=== PATIENT | female | born 1970 | race Caucasian/White ===

== ENCOUNTER → 2020-06-25 16:06 | Outpatient (CLI) | payer OTHER, SELFPAY ==
--- NOTE | ~2020-06-25 | MM_ITS ---
EXAMINATION: MM screening [facility] BI w evaristo HISTORY: Screening mammogram TECHNIQUE: Craniocaudal and mediolateral oblique 3-D tomosynthesis images were obtained and synthetic 2-D images were generated. CAD analysis was submitted and interpreted. COMPARISON: 01/03/2019, 11/20/2017, 11/17/2016 BREAST PARENCHYMAL COMPOSITION: The breasts are heterogeneously dense, which may obscure small masses . FINDINGS: There is no evidence of suspicious mass, calcification, or architectural distortion to sugg est malignancy in either breast. There has been no suspicious interval change. IMPRESSION: 1. No mammographic evidence of malignancy. 2. Recommend routine screening mammography in one year. BI-RADS Category 1: Negative Reviewed, dictated and finalized at location A. IT CHECKER
== END ==
PROVIDERS: Visit Provider Obstetrics & Gynecology
DX: Z12.31 Encounter for screening mammogram for malignant neoplasm of breast (principal)
CPT/HCPCS: 77063; 77067

== ENCOUNTER → 2021-08-30 11:20 | Outpatient (CLI) | payer OTHER, SELFPAY ==
--- NOTE | ~2021-08-30 | MM_ITS ---
EXAMINATION: MM screening [facility] BI w evaristo HISTORY: Screening TECHNIQUE: Craniocaudal and mediolateral oblique 3-D tomosynthesis images were obtained and synthetic 2-D images were generated. CAD analysis was submitted and interpreted. COMPARISON: Comparison to multiple prior studies sequentially, with oldest reviewed study dated 11/12. BREAST PARENCHYMAL COMPOSITION: There are scattered areas of fibroglandular density. FINDINGS: There is no evidence of suspicious mass, calcification, or architectural distortion to sugg est malignancy in either breast. There has been no suspicious interval change. IMPRESSION: 1. No mammographic evidence of malignancy. 2. Recommend routine screening mammography in one year. BI-RADS Category 1: Negative Reviewed, dictated and finalized at location A. NURSE
== END ==
PROVIDERS: Visit Provider Obstetrics & Gynecology
DX: Z12.31 Encounter for screening mammogram for malignant neoplasm of breast (principal)
CPT/HCPCS: 77063; 77067

== ENCOUNTER 2021-09-13 01:49 | Day surgery (SDC) | payer OTHER, SELFPAY ==
[2021-09-09 14:47] VITALS: BMI 22.2
--- NOTE | 2021-09-09 14:48 | SUR.PREOP ---
Report to the Outpatient Waiting Room, entrance under the green pavilion located off [facility], at time _0830 on date _09/13/21 . OR Time: _1030 . - You and your visitor will be asked a series of questions to screen for COVID 19 for your protection. - A mask is required within the hospital. - Only one visitor is allowed at this time. Patient visitors will be guided where to wait when not with patient. Preoperative COVID Testing Requirements: No COVID Test needed if: (proof is required; if not received patient will have Rapid Test prior to entry) - Patient has received COVID Vaccine at least 14 days prior to procedure date or - Patient has positive COVID test result within last 90 days of surgery date. COVID Test needed if above criteria is not met If not COVID vaccinated a COVID test must be conducted within 72 hours of surgery and patient is asked to isolate self from time of testing until procedure. You will go to the [facility] for your COVID testing. The [facility] site is located at the corner of [address] [facility]. You will only be called if COVID results are positive and your surgeon may reschedule your elective surgery date. Patients may have clear liquids (water, carbonated beverages, clear teas, apple juice) until 3 hours prior to surgery with a maximum of 20 ounces. - No food from midnight until time of surgery - Infants may have breast milk until 4 hours before surgery, formula 6 hours prior to surgery. - Children will be allowed to drink immediately following surgery. If applicable, please bring a bottle or sippy cup to assist with drinking. Juice, water, soda, and popsicles are readily available. For infants on formula, please bring formula the day of surgery. Pacifiers are allowed. Take the following medications with a SIP of water the morning of surgery: n/a Medications to discontinue per physician vitamin Date to take last dose___09/10/21 Please no make-up, nail montenegrin, hairspray, perfume, deodorant, or body powder the day of surgery. No jewelry (including any body piercings) or valuables the day of surgery, leave them at home. Please take a shower or bath the night before, or the morning of, surgery with an antibacterial soap. Wear comfortable, loose fitting clothing. Children are encouraged to wear pajamas. - Jewelry must be removed prior to entering the operating room. Rings and piercings that are not removed may be cut off. - The hospital will not accept responsibility for valuables. - Please leave all valuables, including medications, at home the day of surgery. If you are going home after surgery, a licensed hydraulic lift driver must drive you home. - NO public transportation without another adult. - We recommend that an adult stay with you for 24 hours following discharge. - We also recommend that you do not drive, make important decision, drink alcoholic beverages, or take any drugs that were not prescribed by your health care provider for at least 24 hours after your discharge time. For Pediatric surgeries, we recommend two adults accompany the child home (only one inside the building at this time). Follow any additional instructions given to you from your surgeon. Telephone instructions given to marialuisa rgaham and asked if any additional questions and then verbalized understanding. Patient advised to call surgeon office or pre surgery nurse liaison [phone] if any additional questions.
--- NOTE | 2021-09-12 12:01 | P.PNAN_ITS ---
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 Patient Data Age: 51 Gender: F Height: 1.73 m Weight: 66.36 kg Allergies Allergy/AdvReac Type Severity Reaction Status Date / Time codeine Allergy Intermediate Hives,vomit Verified 09/13/21 09:10 ting Home Medications Medication Instructions Recorded Confirmed Type wrwwchaz-qwfp-eva-folic acid [One 1 tablet PO DAILY 09/09/21 09/13/21 History Daily For Women] norethindrone-e.estradiol-iron 1 tablet PO DAILY 09/09/21 09/13/21 History [09/05 ()] Patient hx anesthesia problems: none Family hx anesthesia problems: none Results Review: All pre-operative results and documents have been reviewed as part of the pre-operative evaluation. [facility] Social History Social History Smoking status: Never smoker Alcohol intake: current Alcohol use details: 1 drink a month Living arrangements: with family Spiritual care concerns: No Anes - Eval Final PreProcedure Day of Procedure 09/12/21 12:01 Patient weight: normal Heart: regular rate and rhythm Lungs: clear to auscultation and normal air movement Airway: Mallampati scale class II Neurological: alert and oriented Last oral intake: >/= 8 hours ASA classification: I Emergent: no Anesthetic plan: proceed Anesthesia type and monitoring: general GIVS and LMA Results Review: All pre-operative results and documents have been reviewed as part of the pre-operative evaluation. Informed Consent: The patient's anesthetic plan and its attendant risks and benefits were discussed with the patient/family/POA. Questions were solicited and answers provided to the satisfaction of the patient/family/POA.
--- NOTE | 2021-09-13 07:07 | WPDHPUPDATE1 ---
History and Physical Update Update Date/Time: 09/13/21 07:07 History and Physical has been reviewed, including an updated exam of the patient. There are NO changes in the patient's condition. Risks, benefits, and alternatives have been discussed and questions answered. Patient agrees to proceed with procedure.
[2021-09-13] MEDS: LACTATED RINGERS 1,000 ML 30 ML IV CONT (09:23)
[2021-09-13 09:26] VITALS: BP 138/84; PULSE 62; RESP 18; TEMP 36.7; O2SAT 100; BMI 22.4
--- NOTE | 2021-09-13 09:50 | SUR.PREOP ---
BEDSIDE U-PREG TEST NEGATIVE
--- NOTE | 2021-09-13 10:04 | SUR.PREOP ---
1005 PT AMBULATED TO/FROM BATHROOM WITH STANDBY ASSIST X1
--- NOTE | 2021-09-13 10:27 | SUR.PREOP ---
[address] MCELROY IS FINISHING UP WITH CASE PRIOR TO HERS AND THAT IT WILL BE CLOSER TO 1100 FOR HER SURGERY - UNDERSTANDING VOICED AND PT STATES SHE WILL CONTACT SPOUSE AND INFORM HIM OF DELAY.
--- NOTE | 2021-09-13 10:39 | SUR.PREOP ---
PT REPORT GIVEN TO LINDA FERNANDES R.N.
[2021-09-13] MEDS: ceFAZolin 2 GM/D5W 50 ML 2 GM/50 ML BAG IVPB (11:02)
[2021-09-13] MEDS: BUPIVACAINE HCL 0.5% PF 30 ML VIAL 20 ML INFILTRATE (11:26)
[2021-09-13] MEDS: LIDOCAINE HCL 2% PF INJ 5 ML VIAL 20 ML INFILTRATE (11:28)
[2021-09-13 11:44] VITALS: BP 141/88; PULSE 68; RESP 16; TEMP 36.1; O2SAT 100
[2021-09-13 12:10] VITALS: BP 143/96; PULSE 56; RESP 16; O2SAT 100
--- NOTE | 2021-09-13 12:15 | P.OP_ITS ---
Procedure Note - Detailed Date of Procedure 09/13/21 Pre-op Diagnosis Cedeno's neuroma left foot Post-op Diagnosis same Procedure Performed Excision of Mortons Neuroma left foot Surgeon Quincy Mcfarland JR, DPM Anesthesia general and local Indications Pain and paresthesias between the 3rd and 4th digits Findings Thickened amorphous proper digital nerve to the third and fourth digits Description of Procedure Under mild sedation, the patient was brought in to the operating room, placed on the operating table in the supine position. A pneumatic ankle tourniquet was placed about the patient's left ankle. Following general anesthesia, local anesthesia was obtained about the left lower extremity utilizing 20 mL of 0.5% Marcaine plain and 2% Lidocaine plain to with an ankle ring block. The foot was then scrubbed, prepped, and draped in the usual aseptic manner. An Esmarch bandage was then used to exsanguinate the patient's foot and the pneumatic ankle tourniquet was then inflated. An incision was made along the dorsal 3rd inter metatarsal space. All bleeders were cauterized as necessary. The Deep transverse intermetatarsal ligament was severed. Next Dissection was continued deep to the proper digital plantar nerve which was hypertrophied and amorphous. It was dissected proximal to the central metatarsal shaft area and transected next the distal branches were dissected and transected to the affected third and fourth digits. The neural tissue was sent for gross and histo. The Deep subcutaneous tissue was reapproximated with 4.0 Vicryl and the skin was reapproximated with 4.0 Monocryl. Upon completion of the procedure, the dorsal incision was dressed with Steri- Strips, Adaptic, 4x4s, Kerlix, and Coban. The pneumatic ankle tourniquet was then deflated and a prompt hyperemic response was noted to all digits of the left foot. A CAM walker boot was then applied. The patient did very well with the procedure and the anesthesia. She was transferred to the recovery room with vital signs stable and vascular status intact to all toes of the affected foot. Following a period of postoperative monitoring, the patient will be discharged home on the following written and oral postoperative instructions: 1. The patient should keep the dressing clean, dry, and intact. Use a cast protector bag with showers. 2. The patient will be strictly protected weight bearing with an orthopedic pn eumatic boot. 3. Patient should ice and elevate the right foot when at rest. 4. The patient is to contact Dr. Mcfarland for all postop care and if any problems arise. 5. Prescriptions were written for Percocet 5/325 dispensed 40 to be taken 1 p.o. q.4-6 hours as needed for severe pain. Estimated Blood Loss 1 Drains No Packing No Complications No immediate complications Condition stable Disposition same day
[2021-09-13 12:40] VITALS: BP 142/80; PULSE 64; RESP 16
== END 2021-09-13 13:15 | disposition home or self-care (01) ==
PROVIDERS: PCP Family Medicine; Visit Provider Podiatrist Foot & Ankle Surgery
PROC: (CPT 28080; principal; 2021-09-13 10:30)
DX: G57.62 Lesion of plantar nerve, left lower limb (principal)
CPT/HCPCS: 28080; 88304; 88305; J0690; J1100; J1885; J2250; J2405; J2704; J3010; J7120

== ENCOUNTER → 2021-10-03 11:35 | Outpatient (REF) | payer OTHER, SELFPAY | LOC: ANHLAB 11:35 | PROVIDERS: PCP Family Medicine; Visit Provider Nurse Practitioner | DX: D22.0 Melanocytic nevi of lip (principal) | CPT/HCPCS: 88305 ==

== ENCOUNTER → 2022-01-31 14:32 | Outpatient (CLI) | payer OTHER, SELFPAY ==
--- NOTE | ~2022-01-31 | XR_ITS ---
EXAM: XR hip BI wo pelvis DATE: 01/31/2022 14:49 HISTORY: M25.559 - Pain in unspecified hip . COMPARISON: None available. FINDINGS: Normal mineralization. No fracture or dislocation. No lytic or blastic lesion. Scattered d egenerative changes, moderate in the lower lumbar spine and mild in the right SI joint, pubic symphys is, and bilateral hips. Right iliac wing enthesopathy. No erosion or periosteal change. Soft tissues within normal limits. IMPRESSION: Mild bilateral hip osteoarthritis. Reviewed, dictated and finalized at location K.
== END ==
PROVIDERS: PCP Family Medicine; Visit Provider Family Medicine
DX: M16.0 Bilateral primary osteoarthritis of hip (principal)
CPT/HCPCS: 73521

== ENCOUNTER 2022-04-18 00:52 | Day surgery (SDC) | payer OTHER, SELFPAY ==
[2022-04-08 13:54] VITALS: BMI 21.1
[2022-04-18 08:30] VITALS: BP 136/80; PULSE 75; RESP 18; TEMP 36.7; O2SAT 100; BMI 20.9
[2022-04-18] MEDS: LACTATED RINGERS 1,000 ML 150 ML IV CONT (08:39)
--- NOTE | 2022-04-18 08:45 | PM.HPGS ---
History of Present Illness History of Present Illness Consent: Risks, benefits, and alternatives have been discussed and questions answered. Patient agrees to proceed with procedure. Chief complaint: neoplasm screening Narrative: Keyona Llanos is a 51 year old female here for first screening colonoscopy Review of Systems Constitutional: Constitutional: Denies headache(s) and Denies weakness Eyes: Eyes: Denies blurry vision ENT: Reports Normal hearing present, Denies headache(s) and Denies neck pain Cardiovascular: Cardiovascular: Denies chest pain and Denies dyspnea Respiratory: Respiratory: Denies dyspnea Gastrointestinal: Gastrointestinal: Reports no additional gastrointestinal complaints Genitourinary: Genitourinary: Denies dysuria Musculoskeletal: Musculoskeletal: Denies neck pain Integumentary/Breasts: Skin/Breast: Denies dry skin Neurologic: Reports Normal hearing present, Denies headache(s) and Denies weakness Psychiatric: Psychiatric: Denies anxiety Endocrine: Endocrine: Denies change in body appearance Hematologic/Lymphatic: Hematologic/Lymphatic: Denies easy bleeding Allergic/Immunologic: Allergic/Immunologic: Denies urticaria PMFSH Past Medical History Medical History Centromere antibody positive Enthesopathy of hip Insomnia Positive MIRI (antinuclear antibody) Screen for colon cancer Toe pain, bilateral Family History Family History Grandparent Family history of osteoporosis Mother Family history of osteoporosis Patient's mother is in good health Breast cancer Father Patient's father is in good health Sibling Patient's sister is in good health Other Asthma Social History Social History Smoking status: Never smoker Alcohol intake: current Alcohol use details: 1 drink a month Substance use type: does not use Living arrangements: with family Spiritual care concerns: No Meds Home Medications and Allergies Home Medications Medication Instructions Recorded Confirmed Type dlyexapz-mlvn-cwe-folic acid 18 1 tablet PO DAILY 09/09/21 04/08/22 History mg-0.4 mg tablet (One Daily For Women) norethindrone 1 mg-ethinyl 1 tablet PO DAILY 09/09/21 04/08/22 History estradiol 20 mcg (21)-iron 75 mg (7) tablet (Junel FE 1/20 (28)) meloxicam 15 mg tablet 15 mg PO DAILY #30 tabs 01/27/22 04/08/22 Rx Allergies Allergy/AdvReac Type Severity Reaction Status Date / Time codeine Allergy Unknown Nausea Verified 04/18/22 08:29 Vital Signs Vital Signs - 24 hr 04/18/22 08:30 Temperature 98.1 F Pulse Rate 75 Respiratory Rate 18 Blood Pressure 136/80 Pulse Oximetry 100 Oxygen Delivery Room Air Exam Const: General: comfortable and no acute distress HENMT: General nose exam: Normal nares present Eyes: General: appearance normal, both eyes and all related structures Neck: Neck: no JVD Resp: Auscultation: clear to auscultation bilaterally Cardio: Rate: regular rate Rhythm: regular rhythm GI: Inspection: non-distended GI Palp: Yes Soft to palpation Skin: General skin exam: normal color Neuro: General: gait normal Speech: normal speech Extrem: General: normal to inspection Psych: Mental Status: mental status grossly normal Assessment and Plan Assessment and plan (1) Screen for colon cancer: Code(s): Z12.11 - Encounter for screening for malignant neoplasm of colon Status: Acute Assessment and Plan: colonoscopy
--- NOTE | 2022-04-18 08:48 | P.PNAN_ITS ---
Anes - Initial Pre Proc Eval Procedure: Operation Date: 04/18/22 09:30 Proposed Procedures p Screening Colonoscopy - Prem Powers MD Date/Time: 04/18/22 08:48 Surgeon: Prem Powers MD Pre Op Diagnosis: neoplasm screening Patient Data Age: 51 Gender: F Height: 1.73 m Weight: 62.5 kg Last Vital Signs Temp 98.1 F 04/18/22 08:30 Pulse 75 04/18/22 08:30 Resp 18 04/18/22 08:30 BP 136/80 04/18/22 08:30 Pulse Ox 100 04/18/22 08:30 O2 Del Method Room Air 04/18/22 08:30 Allergies Allergy/AdvReac Type Severity Reaction Status Date / Time codeine Allergy Unknown Nausea Verified 04/18/22 08:29 Home Medications Medication Instructions Recorded Confirmed Type wgfacwvl-ohcw-abq-folic acid 18 1 tablet PO DAILY 09/09/21 04/08/22 History mg-0.4 mg tablet (One Daily For Women) norethindrone 1 mg-ethinyl 1 tablet PO DAILY 09/09/21 04/08/22 History estradiol 20 mcg (21)-iron 75 mg (7) tablet (Junel FE 09/05 (28)) meloxicam 15 mg tablet 15 mg PO DAILY #30 tabs 01/27/22 04/08/22 Rx Patient hx anesthesia problems: none Family hx anesthesia problems: none Results Review: All pre-operative results and documents have been reviewed as part of the pre- operative evaluation. [facility] Past Medical History Medical History Centromere antibody positive Enthesopathy of hip Insomnia Positive MIRI (antinuclear antibody) Screen for colon cancer Toe pain, bilateral Family History Family History Grandparent Family history of osteoporosis Mother Family history of osteoporosis Patient's mother is in good health Breast cancer Father Patient's father is in good health Sibling Patient's sister is in good health Other Asthma Social History Social History Smoking status: Never smoker Alcohol intake: current Alcohol use details: 1 drink a month Substance use type: does not use Living arrangements: with family Spiritual care concerns: No Anes - Eval Final PreProcedure Day of Procedure 04/18/22 08:48 Patient weight: normal Heart: regular rate and rhythm Lungs: clear to auscultation Airway: Mallampati scale class II Neurological: alert and oriented Last oral intake: >/= 8 hours ASA classification: II Emergent: no Anesthetic plan: proceed Anesthesia type and monitoring: general GIVS and standard monitoring Results Review: All pre-operative results and documents have been reviewed as part of the pre- operative evaluation. Informed Consent: The patient's anesthetic plan and its attendant risks and benefits were discussed with the patient/family/POA. Questions were solicited and answers provided to the satisfaction of the patient/family/POA.
[2022-04-18 09:12] VITALS: BP 112/75; PULSE 76; RESP 18; O2SAT 94
[2022-04-18 09:22] VITALS: BP 125/97; PULSE 70; RESP 22; O2SAT 96
[2022-04-18 09:32] VITALS: BP 136/97; PULSE 74; RESP 22; O2SAT 96
== END 2022-04-18 09:42 | disposition home or self-care (01) ==
PROVIDERS: PCP Family Medicine; Visit Provider Internal Medicine Gastroenterology
PROC: 0DJD8ZZ Inspection of Lower Intestinal Tract, Via Natural or Artificial Opening Endoscopic (ICD-10-PCS; CPT 45378; principal; 2022-04-18 09:30)
DX: Z12.11 Encounter for screening for malignant neoplasm of colon (principal); D12.2 Benign neoplasm of ascending colon; K64.8 Other hemorrhoids; G47.00 Insomnia, unspecified
CPT/HCPCS: 45385; 88305; J2704; J7120

== ENCOUNTER → 2022-05-01 08:35 | Outpatient (CLI) | payer OTHER, SELFPAY ==
--- NOTE | ~2022-05-01 | XR_ITS ---
EXAMINATION: XR hand BI arthritis min 3V DATE: 05/01/2022 09:31 INDICATION: Unspecified osteoarthritis, unspecified site. TECHNIQUE: 4 views of right hand and 4 views of left hand on a total of 7 radiographs were obtained. COMPARISON: None. FINDINGS: RIGHT HAND: Bone alignment is normal. No fracture. There is mild osteoarthritis of first carpometacar pal joint, first metacarpophalangeal joint, first interphalangeal joint, fifth proximal interphalange al joint, and third distal interphalangeal joint. LEFT HAND: Bone alignment is normal. No fracture. There is mild osteoarthritis of first interphalange al joint and fourth and fifth proximal interphalangeal joints. IMPRESSION: 1. Mild polyarticular osteoarthritis. Reviewed, dictated and finalized at location A.
--- NOTE | ~2022-05-01 | MR_ITS ---
EXAMINATION: 1. MR pelvis wo/w con DATE: 05/01/2022 09:20 INDICATION: Bilateral hip pain. Sacroiliitis. TECHNIQUE: 1. Magnetic resonance imaging (MRI) of the pelvis was performed without and with 12 mL Multihance int ravenous contrast. Sequences included axial, sagittal and coronal T1-weighted FSE and T1-weighted FS FSE, and postcontrast axial, sagittal and coronal T1-weighted FS FSE. COMPARISON: None FINDINGS: Bone alignment is normal. No fracture, avascular necrosis or pathologic marrow replacing process. 6 m m retrolisthesis L5 on S1 with severe associated disc height loss. There is also an associated annula r fissure and disc extrusion contributing to mild central canal stenosis at this level. Moderate to s evere left-sided predominant disc height loss at L4-L5 also with annular fissure and disc bulge. Mode rate lower lumbar facet osteoarthritis. Bilateral hip joint spaces appear normal. Bilateral acetabula r bette are unremarkable although assessment is more limited on the larger field of imaging. Physiolo gic amount fluid in the bilateral hip joints. Mild osteoarthritis of the left sacroiliac joint. Right sacral iliac joint space appears relatively preserved. No enhancing synovitis, erosions or degenerat christina subarticular changes at the bilateral sacroiliac joints to suggest an inflammatory sacroiliitis. Mild right gluteus medius and trochanteric bursitis with increased fluid signal and enhancement on th e deep and superficial margins of the distal right gluteus medius tendon which demonstrates mild tend inopathy without discrete tear. The remaining bilateral gluteal tendons along with the bilateral ilio psoas and proximal hamstring tendons are normal. No asymmetric muscle atrophy or abnormal muscle sign al of the musculature of the pelvis and bilateral proximal thighs. Fibroid uterus with multiple hypoe nhancing fibroids, the largest measuring 5 cm at the inferior fundus exerts mass effect upon the norm al endometrial complex. The decompressed bladder and visualized portions of the bowels are unremarkab le. Minimal likely physiologic free fluid in the pelvis. No pathologically enlarged pelvic or inguina l lymphadenopathy. IMPRESSION: 1. Mild left sacroiliac osteoarthritis without erosions or enhancing synovitis to suggest an inflamma tory sacroiliitis. 2. Mild right gluteus medius and trochanteric bursitis with mild gliosis medius tendinopathy without tear. 3. Fibroid uterus. 4. Severe lower lumbar spondylosis. Reviewed, dictated and finalized at location A. IMPRESSION: 1. Mild left sacroiliac osteoarthritis without erosions or enhancing synovitis to suggest an inflammatory sacroiliitis. 2. Mild right gluteus medius and trochanteric bursitis with mild gliosis medius tendinopathy without tear. 3. Fibroid uterus. 4. Severe lower lumbar spondylosis.
== END ==
PROVIDERS: PCP Family Medicine; Visit Provider Internal Medicine
DX: R76.8 Other specified abnormal immunological findings in serum (principal); M19.041 Primary osteoarthritis, right hand; M19.042 Primary osteoarthritis, left hand; D25.9 Leiomyoma of uterus, unspecified; M47.896 Other spondylosis, lumbar region; M16.12 Unilateral primary osteoarthritis, left hip; M70.61 Trochanteric bursitis, right hip
CPT/HCPCS: 72197; 73130; A9577

== ENCOUNTER 2022-07-07 08:00 | Outpatient (RCR) | payer OTHER, SELFPAY ==
--- NOTE | 2022-06-02 13:22 | PTOPEVAL1 ---
Assessment and note entered by Gianna Nagel, PT Evaluation Information Assessment Status Evaluation Diagnosis R hip pain Onset October 2021 Subjective Information increase in R hip pain after L foot surgery, wearing walking boot, walking funny and more pain in R hip; Dr gave her permission to resume running on her treadmill, but more pain and not able to run, previously ran 3 miles; Reported Pain Level Pain Score Self Report Additional Pain Score Comments range of 0-6/10; dull pain over anterior/lateral hip; increase pain with walking 2 miles; decrease with stretching, moving, advil, tylenol; with sleeping, can lie on R hip 5-10 min, does not sleep well in general, hip pain does not wake her up; Assessment PT Clinical Summary Keyona has the diagnosis of R hip pain. She reports decreased ability with walking and running. Onset of pain after wearing a walking boot post L foot surgery. Her pelvic MRI report has changes over lumbar and sacral spine with R trochanteric bursitis. With the evaluation, she has good flexibility and strength of her trunk and hips; There was pain reported with standing trunk extension and with supine trunk rotation to L had R hip discomfort. She has poor sitting and standing position. Skilled PT services are indicated for modalities to decrease pain, education for pain management and therapeutic exercises to improve trunk position. Plan of Care Interventions Electrical Stimulation,Hot Pack/Cold Pack,Manual Therapy,Mechanical Traction,Therapeutic Activities ,Therapeutic Exercise PT Services Indicated Yes Treatment Frequency and 1x/wk for 5 weeks Duration These treatments will address the objective and functional deficits as defined above. The patient will be advanced safely and appropriately in order for the patient to progress towards his/her prior level of function. Additional exercises will be introduced and as well as a comprehensive home exercise program upon discharge, if needed, ?to ensure carryover of functional gains achieved in the clinic. This treatment plan has been reviewed and agreement upon by the patient.
--- NOTE | 2022-06-23 17:40 | PCPTNOTE ---
Patient called & cancelled scheduled appointment this date due to being [place] traffic on [address].
--- NOTE | 2022-07-07 08:41 | PTOPDC ---
Assessment and note entered by Gianna Nagel, PT Evaluation Information Assessment Status Discharge Diagnosis R hip pain Onset October 2021 Subjective Information Keyona reports: she is slightly better; has not gotten back to running on the treadmill, but walking on the treadmill at a good pace, not fast and not running; she feels she does not have to get back to running, only did for fitness; trying not to cross her legs, otherwise posture is not that awareness; is doing everything at home and work; is sleeping OK at night; the electrical stim helped her pain; Reported Pain Level Pain Score Self Report Additional Pain Score Comments pain range 0-6/10; R lateral and ant hip stiffness ; no pain over low back or SIJ; increase pain with more activity--getting on/off floor with cleaning her basement, can lie on R side about 10 minutes; walking reported 2-3 miles, can feel it and want to stop walking at about 3 miles; have good computer work station; discussed home stim unit for pain control and placement of pads, use of unit; Assessment PT Clinical Summary Keyona received 5 PT sessions, for R hip pain. She called and canceled one appointment due to stuck in traffic. Compared to the initial evaluation: her pain rating is the same, but reports pain only in R lateral hip, no longer in back and less time at the high rating, and able to do more activity before the pain starts; reported walking tolerance increased from 2 to 3 miles; standing trunk extension is not painful; no longer has any tenderness over sacral or lumbar areas; She is independent with a home exercise program and has a better understanding of posture and pain management. The goals were partially achieved. Discharge PT services. Plan of Care PT Services Indicated No
== END 2022-07-07 12:31 | disposition home or self-care (01) ==
LOC: ANHPT 08:00
PROVIDERS: PCP Family Medicine; Visit Provider Internal Medicine
DX: M76.899 Other specified enthesopathies of unspecified lower limb, excluding foot (principal)
CPT/HCPCS: 97014; 97110; 97140; 97161; 97530; G0283

== ENCOUNTER 2023-02-02 11:17 | Outpatient (CLI) | payer OTHER, SELFPAY ==
[2023-02-02 11:57] LABS: Hematocrit 39.6 % (37.0-47.0); Hemoglobin 12.9 g/dL (12.0-15.0); Mean Corpuscular HGB Conc 32.6 g/dl (32-36); Mean Corpuscular Hemoglobin 31.2 pg (26-34); Mean Corpuscular Volume 95.9 fl (80-100); Mean Platelet Volume 9.2 fl (7.4-10.4); Platelet Count Result 208 k/mm3 (150-375); Red Blood Count 4.13 M/mm3 (4.2-5.4); Red Cell Distribution Width 11.4 % (11.5-14.5); White Blood Count 3.8 K/mm3 (4.5-10.0)
[2023-02-02 12:04] LABS: Appearance Urine Cloudy (Clear); Bacteria Urine None Seen /hpf; Bilirubin Urine Negative (Negative); Blood Urine Negative (Negative); Color Urine Yellow (Yellow); Glucose Urine UA Negative (Negative); Ketones Urine Negative (Negative); Leukocyte Esterase Ur 2+ LEU/UL (Negative); Nitrate Urine Negative (Negative); Non Pathogenic Casts 0-2; Protein Urine Trace mg/dL (Negative); RBC Urine 0-2 /hpf (0-2); Specific Grav Ur 1.028 (1.001-1.035); Squamous Epithelial Cell Urine Occasional /hpf (Few); Urobilinogen Urine 0.2 mg/dL (<2.0); WBC Urine 51-100 /hpf
[2023-02-02 12:07] LABS: Add Urine Microscopic? YES
[2023-02-02 12:11] LABS: Alanine Aminotransferase 22 U/L (6-35); Alkaline Phosphatase 68 U/L (38-126); Anion Gap 4 mmol/L (8-16); Aspartate Amino Transferase 28 U/L (14-36); Bilirubin,Total 0.4 mg/dL (0.2-1.3); Blood Urea Nitrogen 19 mg/dL (7-17); CRP < 0.5 mg/dL (<1.0); Calcium 8.8 mg/dL (8.4-10.2); Carbon Dioxide 29 mmol/L (22-30); Chloride 107 mmol/L (98-107); Estimated Glomerular Filt Rate > 60; Glucose 81 mg/dL (65-110); Potassium 4.3 mmol/L (3.4-5.0); Sodium 140 mmol/L (137-145)
[2023-02-02 12:25] LABS: Erythrocyte Sedimentation Rate 15 mm/hr (0-20)
== END 2023-02-02 11:18 | disposition home or self-care (01) ==
LOC: ANHLAB 11:18
PROVIDERS: PCP Family Medicine; Visit Provider Internal Medicine
DX: M35.9 Systemic involvement of connective tissue, unspecified (principal); M19.90 Unspecified osteoarthritis, unspecified site
CPT/HCPCS: 36415; 80053; 81001; 85027; 85652; 86140; 87086

== ENCOUNTER 2023-10-22 15:17 | Outpatient (CLI) | payer OTHER, SELFPAY ==
--- NOTE | ~2023-10-22 | CT_ITS ---
EXAMINATION: CT IAC/mastoids BI wo con DATE: 10/22/2023 15:41 INDICATION: Sensorineural hearing loss. Other specified diseases of right inner ear. TECHNIQUE: Computed tomography (CT) of the temporal bones was performed without intravenous contrast. Automated exposure control and iterative reconstruction technique were employed. The dose-length pro duct was 384.92 mGy-cm. COMPARISON: None FINDINGS: RIGHT TEMPORAL BONE: The internal auditory canal, cochlea, vestibule, semicircular canals, vestibular aqueduct, carotid ca nal, jugular bulb, ossicles, facial nerve course, tympanic membrane, scutum, Prussak space, and exter nal auditory canal are normal. There is fluid in a few mastoid air cells. LEFT TEMPORAL BONE: The internal auditory canal, cochlea, vestibule, semicircular canals, vestibular aqueduct, carotid ca nal, jugular bulb, facial nerve course, ossicles, Prussak space, scutum, tympanic membrane, mastoid a ir cells, and external auditory canal are normal. IMPRESSION: 1. No etiology for sensorineural hearing loss. Reviewed, dictated and finalized at location E. SAW OPERATOR
== END 2023-10-22 15:18 ==
LOC: GOSHIMG 15:19
PROVIDERS: PCP Otolaryngology; Visit Provider Otolaryngology
DX: H83.8X1 Other specified diseases of right inner ear (principal); H90.3 Sensorineural hearing loss, bilateral
CPT/HCPCS: 70480

== ENCOUNTER 2024-02-12 19:34 | Emergency (ER) | payer OTHER, SELFPAY ==
--- NOTE | 2024-02-12 19:40 | ED.GENADULT ---
HPI - General Adult General Chief complaint: Skin/Abscess/Foreign Body Stated complaint: Hives Source: patient Mode of arrival: ambulatory Limitations: no limitations History of Present Illness HPI narrative: 53-year-old female presented for complaint of itchy rash noted to the face, neck, and arms or past few days. She states she has intermittently had similar rash for the last 2 months. [employer] is not working. She has taken a course of prednisone at the onset 2 months ago which did help. Denies lip, tongue, or throat swelling, shortness of breath or wheezing. Denies changes to soap, detergent, lotion, or any other exposures. No one else in the house or any contacts with similar symptoms. Scheduled with Dermatology in March. Related Data Allergies Allergy/AdvReac Type Severity Reaction Status Date / Time codeine Allergy Unknown Nausea Verified 02/12/24 19:46 Review of Systems Review of Systems: CONSTITUTIONAL: Denies body aches, fever, chills, or sweats. EYES: Denies visual changes, redness, or discharge. ENT: Denies rhinorrhea, congestion CARDIOVASCULAR: Denies chest pain, palpitations, or edema. RESPIRATORY: Denies cough or dyspnea. GASTROINTESTINAL: Denies abdominal pain, nausea, vomiting, or diarrhea. SKIN: Reports rash MUSCULOSKELETAL: Denies back pain, joint pain, or myalgia. NEUROLOGIC: Denies headache, numbness, tingling, or weakness. [facility] Past Medical History Medical History Centromere antibody positive Enthesopathy of hip Insomnia Positive MIRI (antinuclear antibody) Screen for colon cancer Toe pain, bilateral Undifferentiated connective tissue disease Surgical History Surgical History H/O foot surgery Family History Family History Grandparent Family history of osteoporosis Mother Family history of osteoporosis Patient's mother is in good health Breast cancer Father Patient's father is in good health Pacemaker Sibling Patient's sister is in good health Other Asthma Social History Social History Social History: Caffeine-occasional soda Smoking status: Never smoker Second hand tobacco smoke exposure: Yes Alcohol intake: current Alcohol use details: 1 drink a month Substance use: never Substance use type: does not use Lack of Transportation: YES Lack of Food: Never True Current Housing: I Have Housing Concerned About Future Housing: No Difficulty Paying Gas/Electric Bills: No Difficulty Paying for Meds: No Currently Unemployed: No Education: High School Diploma/GED Difficulty w/ Childcare or Family Care: No Living arrangements: with family Occupation/Education: occupation 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 Please see nursing chart for further information. There is no relevant family history pertinent to the presenting complaint Exam Narrative: GENERAL: Well-appearing HEAD: Normocephalic, atraumatic. EYES: conjunctivae clear, and EOMI. bilateral lower orbits with approximately 1 cm diameter area of erythema with vesicles consistent with contact dermatitis ENT: Mucous membranes moist. Oropharynx without edema, erythema or lesions. NECK: Supple. No lymphadenopathy CHEST: Clear to auscultation. HEART: Regular rate and rhythm. SKIN: Warm, dry. Scattered vesicles on erythematous base noted to the face, neck, and bilateral forearms consistent with contact dermatitis NEURO: Alert and oriented x3. Course Course Emergency Course: Patient is aware of diagnosis, u
[2024-02-12 19:45] VITALS: BP 151/91; PULSE 92; RESP 16; TEMP 36.9; O2SAT 100
== END 2024-02-12 19:57 | disposition home or self-care (01) ==
PROVIDERS: Emergency Provider Nurse Practitioner Family; PCP Family Medicine
DX: L25.9 Unspecified contact dermatitis, unspecified cause (principal)
CPT/HCPCS: 99213; G0463

== ENCOUNTER 2024-05-28 11:14 | Outpatient (CLI) | payer OTHER, SELFPAY ==
--- NOTE | ~2024-05-28 | XR_ITS ---
EXAM: XR cervical spine min 6V DATE: 05/28/2024 11:46 HISTORY: M54.2 - Cervicalgia . COMPARISON: None available. FINDINGS: Craniocervical association and atlantoaxial joint are aligned. Moderate degenerative colunga e at the atlantodental interval. No prevertebral soft tissue swelling. Grade 1 at C2-3 anterolisthesi s which emerges in flexion. Grade 1 anterolisthesis at C3-4 that reduces in flexion. Grade 1 anteroli sthesis at C4-5 that worsens in flexion and reduces in extension. Stable grade 1 retrolisthesis at C5 -6. Vertebral body heights are maintained. Mild disc space narrowing at C3-4. Moderate disc space deandre rowing at C4-5. Severe disc space narrowing at C5-6 and C6-7. Multilevel moderate facet/uncovertebral joint hypertrophy and sclerosis. Moderate bilateral neural foraminal narrowing at C5-6 and C6-7. IMPRESSION: Dynamic grade 1 listheses at C2-3 through C4-5. Stable grade 1 retrolisthesis at C5-6. Mu ltilevel degenerative disc disease, severe at C5-6 and C6-7. Moderate bilateral neural foraminal narr owing at C5-6 and C6-7. Multilevel facet arthropathy. Reviewed, dictated and finalized at location K. IMPRESSION: Dynamic grade 1 listheses at C2-3 through C4-5. Stable grade 1 retr olisthesis at C5-6. Multilevel degenerative disc disease, severe at C5-6 and C6 -7. Moderate bilateral neural foraminal narrowing at C5-6 and C6-7. Multilevel facet arthropathy.
== END 2024-05-28 11:15 | disposition home or self-care (01) ==
PROVIDERS: PCP Family Medicine; Visit Provider Nurse Practitioner Family
DX: M50.322 Other cervical disc degeneration at C5-C6 level (principal); M50.323 Other cervical disc degeneration at C6-C7 level; M47.812 Spondylosis without myelopathy or radiculopathy, cervical region
CPT/HCPCS: 72052

== ENCOUNTER 2024-10-07 06:13 | Day surgery (SDC) | payer OTHER, SELFPAY ==
[2024-09-22 09:29] VITALS: BMI 22.1
[2024-10-07] VITALS (10 sets, daily range): BP systolic 121–154; BP diastolic 82–94; PULSE 62–82; RESP 12–18; TEMP 36.1–37.2; O2SAT 100
--- NOTE | ~2024-10-07 | XR_ITS ---
EXAMINATION: XR surgery orthopedic DATE: 10/07/2024 10:43 INDICATION: Arthrodesis of right first metatarsophalangeal joint. TECHNIQUE: 2 intraoperative fluoroscopic views of right foot were obtained. I was not present. Fluoro scopy exposure time was 12 seconds. COMPARISON: None. FINDINGS: There are changes of arthrodesis of first metatarsophalangeal joint with dorsal plate, mult iple screws, and single interfragmentary screw. No fracture. IMPRESSION: 1. Arthrodesis procedure of first metatarsophalangeal joint. Reviewed, dictated and finalized at location A. [facility] [employer]
--- NOTE | 2024-10-07 07:20 | WPDHPUPDATE1 ---
History and Physical Update Update Date/Time: 10/07/24 07:20 History and Physical has been reviewed, including an updated exam of the patient. There are NO changes in the patient's condition. Risks, benefits, and alternatives have been discussed and questions answered. Patient agrees to proceed with procedure.
--- OUTSIDE RECORDS SUMMARY | 2024-10-07 07:57 | XMS_ITS | Data Portability ---
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, HS pedro cologuard box for her next year Not available 06/08/2020 14:23:16 06/14/2021 06/14/2021 manager culinary exam normal, small 2-day period on OCPs youngest is a senior in HS discussed cologuard vs colonoscopy Not available 06/14/2021 14:33:12 06/20/2022 06/20/2022 manager culinary exam benign should go off OCPs with new lupus diagnosis kids doing well youngest is a senior in HS Not available 06/20/2022 14:25:08 06/29/2023 06/29/2023 Final Operations Technician exam benign will check FSH/LH to see if is menopausal may need h-scope if continues Not available 06/29/2023 15:21:36 07/08/2024 07/08/2024 manager culinary exam benign after discussion of pros and cons will start some HRT for quality of life Not available 07/08/2024 10:34:29 Plan of Treatment Reminders Order Date Submit Date Provider Last Modified By Organization Details Last Modified Time Details Appointments ANNUAL 30 2024 09:00A Daya Quintana MD Not available Not available Not available Lab cytology report, thin prep, smear or scraping, cervical or vaginal 2023 024 [facility], [address], [place], [address], 07/18/2024 16:26:30 lh + FSH, serum 2022 023 [facility], [address], [place], [address], 06/30/2023 11:13:40 cytology report, thin prep, smear or scraping, cervical or vaginal 2020 021 [facility], [address], [place], [address], 06/18/2021 16:11:37 Referral None recorded. Procedures None recorded. Surgeries None recorded. Imaging MAMMO, screening , digital, bilateral 2023 [facility], [address] , [place], [address], 10/06/2024 12:47:37 MAMMO, screening , digital, bilateral 2022 [facility]23 [facility] [address], [place], [address], 12/28/2023 10:08:02 MAMMO, screening , digital, bilateral 2021 022 [facility], [address], [place], [address], 08/19/2022 10:29:50 MAMMO, screening , digital, bilateral 2020 021 [facility], [address], [place], [address], 08/30/2021 14:18:32 MAMMO, screening , digital, bilateral 2019 020 [email or web address] Not available 06/08/2020 14:18:46 Medication Orders estradiol 1 mg tablet 2023 024 [facility]/Pharmacy #[id number], [address] [place], [address], 07/08/2024 10:34:10 medroxypr ogesteron e 2.5 mg tablet 2023 024 [facility]/Pharmacy #[id number], [address] [place], [address], 07/08/2024 10:34:10 Junel FE 09/05 (28) 1 mg-20 mcg (21)/75 mg (7) tablet 2021 022 [facility]/Pharmacy #3259, [address] [place], [address], 06/29/2023 15:02:52 Junel FE 09/05 (28) 1 mg-20 mcg (21)/75 mg (7) tablet [address] [facility], [address] [place], [address], 06/29/2023 15:02:52 Patient TargetsNo targets recorded. Patient Instructions Encounter Date Encounter Id Patient Instructions Last Modified By Organization Details Last Modified Time 06/08/2020 [id number] learning about breast cancer screening er Not available 06/08/2020 14:12:20 06/14/2021 [id number] learning about breast cancer screening Not available 06/14/2021 14:24:55 06/20/2022 [id number] learning about breast cancer screening Not available 06/20/2022 14:12:16 06/29/2023 [id number] learning about breast cancer screening gter Not available 06/29/2023 15:09:57 secondary amenorrhea: care instructions Not available 06/29/2023 15:10:06 07/08/2024 [id number] learning about breast cancer screening Not available 07/08/2024 10:13:57 Reason for Referral None Reported. Results Created Date Observation Date Name Description Value Unit Range Abnormal Flag Note LastModifiedBy Organization Detail LastModifiedTime 06/14/20 21 06/18/2021 IGP, RFX APTIM A HPV ASCU diagnosis: Kelton t NEGAT GERTRUDIS FOR INTRA EPITH ELIAL LESIO N OR EMBER DEE . Not Available [facility] ([facility]) [address] [place], [address], 06/18/2021 16:11:37 06/14/20 21 06/18/2021 IGP, RFX APTIM A HPV ASCU specimen adequacy: Kelton t Satis facto ry for evalu ation . No endoc ervic al compo nent is ident ified . Not Available [facility] ([facility]) [address] [place], [address], 06/18/2021 16:11:37 06/14/20 21 06/18/2021 IGP, RFX APTIM A HPV ASCU clinician provided ICD10: Kelton carvajal Z01.4 19 Not Available [facility] ([facility]) [address] [place], [address], 06/18/2021 16:11:37 06/14/20 21 06/18/2021 IGP, RFX APTIM A HPV ASCU performed by: Kelli Lara Not Available [facility] ([facility]) [address] [place], [address], 06/18/2021 16:11:37 06/14/20 21 06/18/2021 IGP, RFX APTIM A HPV ASCU . . Not Available [facility] ([facility]) [address] [place], [address], 06/18/2021 16:11:37 06/14/20 21 06/18/2021 IGP, RFX APTIM A HPV ASCU note: Commen t The Pap smear is a scree celina test desig shelby to aid in the detec tion of patel ligna nt and malig nant condi tions of the uteri ne cervi x. It is not a diagn ostic proce dure and shoul d not be used as the sole means of detec ting cervi kamla cance r. Both false -posi tive and false -nega tive repor ts do occur . Not Available [facility] ([facility]) [address] [place], [address], 06/18/2021 16:11:37 06/14/20 21 06/18/2021 IGP, RFX APTIM A HPV ASCU test methodology: Commen t This liqui d based ThinP rep(R ) pap test was scree shelby with the use of an image guide d syste m. Not Available [facility] ([facility]) [address] [place], [address], 06/18/2021 16:11:37 06/14/20 21 06/18/2021 IGP, RFX APTIM A HPV ASCU . Commen t The HPV DNA refle x crite carli were not met with this speci men resul t there fore, no HPV testi ng was perfo rmed. Not Available [facility] ([facility]) [address] [place], [address], 06/18/2021 16:11:37 06/29/20 23 06/30/2023 FSH AND LH LH 32.7 mIU/m L Adult Femal e Range Folli cular phase 2.4 - 12.6 Ovula tion phase 14.0 - 95.6 Lutea l phase 1.0 - 11.4 Postm enopa usal 7.7 - 58.5 Not Available [facility] ([facility]) [address] [place], [address], 06/30/2023 11:13:40 06/29/20 23 06/30/2023 FSH AND LH FSH 29.0 mIU/m L Adult Femal e Range Folli cular phase 3.5 - 12.5 Ovula tion phase 4.7 - 21.5 Lutea l phase 1.7 - 7.7 Postm enopa usal 25.8 - 134.8 Not Available [facility] ([facility]) [address] [place], [address], 06/30/2023 11:13:40 07/08/20 24 07/18/2024 IGP, RFX APTIM A HPV ASCU diagnosis: KELTON LANDIN GERTRUDIS FOR INTRA EPITH ELIAL LESIO N OR MALNATA DEE . CELLU LAR RUBY ES ASSOC IATED WITH ATROP HY ARE PRESE NT. Not Available [facility] ([facility]) [address] [place], [address], 07/18/2024 16:26:30 07/08/20 24 07/18/2024 IGP, RFX APTIM A HPV ASCU specimen adequacy: KELTON Carvajal Satis facto ry for evalu ation . Endoc ervic al compo nent may not be disti nguis hed in cases of atrop hy. Not Available [facility] ([facility]) [address] [place], [address], 07/18/2024 16:26:30 07/08/20 24 07/18/2024 IGP, RFX APTIM A HPV ASCU clinician provided ICD10: KELTON Carvajal Z01.4 19 Not Available [facility] ([facility]) [address] [place], [address], 07/18/2024 16:26:30 07/08/20 24 07/18/2024 IGP, RFX APTIM A HPV ASCU performed by: Kelli Walker rd (ASCP ) Not Available [facility] ([facility]) [address] [place], [address], 07/18/2024 16:26:30 07/08/20 24 07/18/2024 IGP, RFX APTIM A HPV ASCU . . Not Available [facility] ([facility]) [address] [facility], [place], [address], 07/18/2024 16:26:30 07/08/20 24 07/18/2024 IGP, RFX APTIM A HPV ASCU note: COMMEN T The Pap smear is a scree celina test carmen ryan to aid in the detec tion of patel ligna nt and malig nant condi tions of the uteri ne cervi x. It is not a diagn ostic proce dure and shoul d not be used as the sole means of detec ting cervi kamla cance r. Both false -posi tive and false -nega tive repor ts do occur . Not Available [facility] ([facility]) [address] [facility], [place], [address], 07/18/2024 16:26:30 07/08/20 24 07/18/2024 IGP, RFX APTIM A HPV ASCU test methodology: COMMEN T This liqui d based ThinP rep(R ) pap test was yohana ryan with the use of an image guide dee garcia. Not Available [facility] ([facility]) [address] [facility], [place], [address], 07/18/2024 16:26:30 07/08/20 24 07/18/2024 IGP, RFX APTIM A HPV ASCU . COMMEN T The HPV DNA refle x crite carli were not met with this speci men resul t there fore, no HPV testi ng was perfo rmed. Not Available [facility] ([facility]) [address] [place], [address], 07/18/2024 16:26:30 06/26/20 20 06/25/2020 MAMMO , scree celina, digit al, bilat eral No observ ation [facility] ed. [facility] [address], [place], [address], 06/26/2020 11:59:06 08/30/19 22 08/30/2021 MAMMO , stephye celina, digit al, bilat eral No observ ation record ed. [facility] [address], [place], [address], 09/01/2021 12:29:38 Result Notes None recorded. Problems Name Problem SNOMED Code Status Onset Date Resolution Date Notes Provider Name and Address Organization Details Recorded Time Irregular periods 83649978 Active VANDANA Bar, [facility] 6 16:23:22 Lupus erythematosus 198961101 Active LEONA Pérez, [facility] 2 14:06:56 Problem Notes None recorded. Procedures Surgical History Date Name Laterality Status Provider Name and Address Organization Details Recorded Time 2 Most Recent Mammogram completed LEONA Pérez [facility] 08/30/2021 14:39:50 1 Date of Last Pap Smear completed Thea Lazo RN [facility] 06/18/2021 16:18:56 Imaging Results Imaging Date Name Status [facility] Details LastModified Time 06/25/2020 MAMMO, screening, digital, bilateral [facility] [address], [place], [address], 06/26/2020 11:59:06 08/30/2021 MAMMO, screening, digital, bilateral completed [facility] [address], [place], [address], 09/01/2021 12:29:38 Procedure Notes None recorded. Medical Equipment None Reported. Allergies Allergen ID Allergen Name Allergen Category Reaction Reaction Severity Criticality Documentation Date Start Date Code Code System Note Provider Name and Address Organization Details Recorded Time 40475 codeine medicatio n Not available Not available Not available 09/12/2014 0 RxNorm Not Available Not Available Not Available Medications Name Sig Start Date Stop Date Status Note LastModified by Organization Details LastModified Time cyclobenzap rine 10 mg tablet active Not Available Not Available Not Available prednisone 10 mg tablet TAKE 3 TABLETS BY MOUTH ONCE DAILY FOR 5 DAYS 07/08 completed Not Available Not Available Not Available paroxetine 10 mg tablet TAKE ONE TABLET BY MOUTH ONCE DAILY active Not Available Not Available No t Available Ogestrel (28) 0.5 mg-50 mcg tablet Take 1 tablet every day by oral route for 28 days. 06/20 completed Not Available Not Available Not Available Necon 1/50 (28) 1 mg-50 mcg tablet TAKE 1 TABLET BY MOUTH EVERY DAY 06/20 completed Not Available Not Available Not Available medroxyprog esterone 2.5 mg tablet Take 1 tablet every day by oral route. active Not Available Not Available No t Available hydrocodone 5 mg-acetamin ophen 325 mg tablet TAKE 1 TABLET BY MOUTH EVERY 4 TO 6 HOURS NEEDED FOR SEVERE PAIN 06/20 completed Not Available Not Available Not Available meloxicam 15 mg tablet TAKE 1 TABLET BY MOUTH EVERY DAY 06/29 completed Not Available Not Available Not Available famotidine 40 mg tablet TAKE 1 TABLET BY MOUTH DAILY FOR 10 DAYS active Not Available Not Available No t Available metronidazo le 500 mg tablet TAKE 1 TABLET BY MOUTH TWICE A DAY WITH FOOD FOR 7 DAYS 06/29 completed Not Available Not Available Not Available sulfamethox azole 800 mg-trimetho prim 160 mg tablet TAKE 1 TABLET BY MOUTH EVERY 12 HOURS UNTIL FINISHED 06/20 completed Not Available Not Available Not Available Gentak 0.3 % (3 mg/gram) eye ointment 06/20 completed Not Available Not Available Not Available amoxicillin 875 mg tablet 06/20 completed Not Available Not Available Not Available alprazolam 0.25 mg tablet 0.25 MG ORALLY DAILY NEEDED FOR ANXIETY active Not Available Not Available No t Available estradiol 1 mg tablet Take 1 tablet every day by oral route. active Not Available Not Available No t Available triamcinolo ne acetonide 0.1 % topical ointment APPLY TO RASH TWICE DAILY FOR 2 WEEKS MAXIMUM active Not Available Not Available No t Available sertraline 25 mg tablet TAKE ONE TABLET (25MG) BY MOUTH ONCE DAILY active Not Available Not Available No t Available mupirocin 2 % topical ointment APPLY TO WOUND TWICE DAILY 06/20 completed Not Available Not Available Not Available zolpidem 5 mg tablet TAKE 1 TABLET BY MOUTH ONCE DAILY NEEDED FOR INSOMNIA active Not Available Not Available No t Available zaleplon 5 mg capsule PLEASE SEE ATTACHED FOR DETAILED DIRECTION S 06/29 completed Not Available Not Available Not Available hydroxychlo roquine 200 mg tablet 400 MG ORALLY DAILY active Not Available Not Available No t Available methylpredn isolone 4 mg tablets in a dose pack FOLLOW PACKAGE DIRECTION S 07/08 completed Not Available Not Available Not Available ketoconazol e 2 % topical cream APPLY TOPICALLY TWICE A DAY active Not Available Not Available No t Available Sprintec (28) 0.25 mg-35 mcg tablet Take 1 tablet every day by oral route for 28 days. 06/14 completed Not Available Not Available Not Available 09/05 (21) 1 mg-20 mcg tablet Take 1 tablet every day by oral route for 21 days. 06/14 completed Not Available Not Available Not Available ketorolac 0.4 % eye drops 06/20 completed Not Available Not Available Not Available FE 09/05 (28) 1 mg-20 mcg (21)/75 mg (7) tablet TAKE 1 TABLET EVERY DAY CONTINOUS LY, SKIP PLACBO 06/29 completed Not Available Not Available Not Available eszopiclone 1 mg tablet TAKE 1 TABLET BY MOUTH EVERY DAY AT BEDTIME FOR INSOMNIA 07/08 completed Not Available Not Available Not Available Fluzone 7220-8140 45 mcg (15 mcg x 3)/0.5 mL intramuscul ar suspension 06/20 completed Not Available Not Available Not Available Fluvirin 6784-3898 45 mcg (15 mcg x 3)/0.5 mL intramuscul ar suspension 06/20 completed Not Available Not Available Not Available Blisovi 24 Fe 1 mg-20 mcg (24)/75 mg (4) tablet TAKE 1 TABLET EVERY DAY BY ORAL ROUTE FOR 24 DAYS. 07/08 completed Not Available Not Available Not Available Vitals Date Recorded Body weight Systolic blood pressure Diastolic blood pressure Provider Name and Address Organization Details Last Updated DateTime 06/08/2020 47095.11 g 142 mm[Hg] 88 mm[Hg] Flaca Maldonado Kwabena [facility] 06/08/2020 14:09:40 Date Recorded Body weight Systolic blood pressure Diastolic blood pressure Provider Name and Address Organization Details Last Updated DateTime 06/14/2021 85301.33 g 154 mm[Hg] 92 mm[Hg] Flaca Maldonado JOEKwabena [facility] 06/14/2021 14:16:58 Date Recorded Body height Body mass index (BMI) Body weight Systolic blood pressure Diastolic blood pressure Provider Name and Address Organization Details Last Updated DateTime 06/20/2022 175.26 cm 21.7 kg/m2 86540.36 g 128 mm[Hg] 84 mm[Hg] Flaca Maldonado Kwabena [facility] 2 14:03:08 Date Recorded Body height Body mass index (BMI) Body weight Systolic blood pressure Diastolic blood pressure Provider Name and Address Organization Details Last Updated DateTime 06/29/2023 175.26 cm 22.3 kg/m2 93114.45 g 122 mm[Hg] 82 mm[Hg] Flaca Maldonado [facility] 3 15:02:20 Date Recorded Body height Body mass index (BMI) Body weight Systolic blood pressure Diastolic blood pressure Provider Name and Address Organization Details Last Updated DateTime 07/08/2024 175.26 cm 23.1 kg/m2 79826.84 g 126 mm[Hg] 84 mm[Hg] Flaca Maldonado Kwabena [facility] 4 10:09:26 Social History Question Answer Notes LastModified by Organizat ion Details LastModified Time Tobacco Smoking Status Never Smoker LEONA Pérez [facility] 06/08/2020 14:08:06 Do You Have An Advance Directive? No Information not available 06/08/2020 What Is Your Level Of Alcohol Consumption? Occasional Information not available 06/08/2020 Is Blood Transfusion Acceptable In An Emergency? Yes Information not available 06/08/2020 What Is Your Level Of Caffeine Consumption? Occasional Information not available 06/08/2020 How Much Tobacco Do You Chew? None Information not available 06/08/2020 In The 14 Days Before Symptom Onset, Have You Had Close Contact With A Laboratory-confir med COVID-19 While That Case Was Ill? No Information not available 06/20/2022 In The 14 Days Before Symptom Onset, Have You Had Close Contact With A Person Who Is Under Investigation For COVID-19 While That Person Was Ill? No Information not available 06/20/2022 Have You Been To An Area Known To Be High Risk For COVID-19? No Information not available 06/20/2022 What Type Of Diet Are You Following? REGULAR Information not available 06/08/2020 Do You Or Have You Ever Used E-cigarettes Or Vape? Never Used Electronic Cigarettes Information not available 06/08/2020 Live Alone Or With Others? With Others Information not available 06/08/2020 What Was The Date Of Your Most Recent Tobacco Screening? 07/08/2024 Information not available 07/08/2024 How Many Children Do You Have? 2 Information not available 09/17/2015 Performs Monthly Self-breast Exam? Yes Information no t available 06/08/2020 Do You Use Protection During Sex? No Information not available 06/08/2020 What Is Your Relationship Status? Information not available 09/17/2015 Seat Belts Used Routinely Yes Information not available 06/08/2020 Are You Sexually Active? Yes Information not available 06/08/2020 Do You Or Have You Ever Used Smokeless Tobacco? Never Used Smokeless Tobacco Information not available 06/08/2020 How Much Tobacco Do You Smoke? No Information not available 06/08/2020 General Stress Level Low Information not available 06/08/2020 Do You Use Sunscreen Routinely? Yes Information not available 06/08/2020 Has Tobacco Cessation Counseling Been Provided? No Information not available 06/20/2022 On What Date Was Tobacco Cessation Counseling Provided? 06/08/2020 Information not available 06/08/2020 Do You Or Have You Ever Used Any Other Forms Of Tobacco Or Nicotine? No Information not available 06/20/2022 Sex: Female Functional Status Question Answer Note LastModified by Organizat ion Details LastModified Time What is your exercise level? Occasional Information not available 06/08/2020 Mental Status None recorded. Family History Nothing Reported. Medical History No medical history recorded. Gynecological History Statement/Question Response Abnormal Pap N Flow Moderate STIs/STDs N HPV Vaccine N Duration of Flow (days) 3 Most Recent Mammogram 08/30/2021 Current Control Method None Frequency of Cycle (Q days) 28 Sexually Active? Y Menses Monthly Y Date of Last Pap Smear 06/14/2021 Sexual Problems? N LMP Unknown Obstetrics History GPAL:G 2 P 2 0 0 2 Type Value Full Term 2 Living 2 Total 2 Immunizations Vaccine Type Date Status Note Provider Nam e and Address Organization Details Recorded Time COVID-19, mRNA, LNP-S, PF, 30 mcg/0.3 mL dose, alejo-sucrose 2 completed Flaca Maldonado, R[place], [place] [facility] 06/20/2022 14:07:05 Influenza, split virus, quadrivalent, PF 9 completed Flaca Casanovace, [place] [facility] 06/20/2022 14:07:05 Influenza, split virus, quadrivalent, PF 1 completed Flaca Maldonado [place] [facility] 06/20/2022 14:07:05 COVID-19, mRNA, LNP-S, PF, 30 mcg/0.3 mL dose 1 completed Flaca Maldonado, [place] [facility] 06/20/2022 14:07:05 Influenza, MDCK, quadrivalent, PF 0 completed Flaca Maldonado, [place] [facility] 06/20/2022 14:07:05 Influenza, split virus, trivalent, PF 6 completed Flaca Maldonado [place] [facility] 06/20/2022 14:07:05 zoster recombinant 2 completed Flaca Maldonado, [place] [facility] 06/20/2022 14:07:05 COVID-19 vaccine, vector-nr, rS-Ad26, PF, 0.5 mL 1 completed Flaca Erica, [place] [facility] 06/20/2022 14:07:05 Influenza, split virus, quadrivalent, PF 7 completed Flaca Maldonado, [place] [facility] 06/20/2022 14:07:05 Influenza, high-dose, trivalent, PF 4 completed Flaca Maldonado, [place] [facility] 06/20/2022 14:07:05 COVID-19, mRNA, LNP-S, bivalent, PF, 30 mcg/0.3 mL dose 2 completed Flaca Maldonado, [place] [facility] 06/29/2023 14:55:25 Influenza, split virus, quadrivalent, PF 2 completed Flaca Maldonado, [place] [facility] 06/29/2023 14:55:25 Past Encounters Encounter ID Performer Location Encounter Start Date Encounter Closed Date Diagnosis/Indication Diagnosis SNOMED-CT Code Diagnosis ICD10 Code Diagnosis Note [id number] DESEAN Yañez ([place] [address]) [address] [place] [address] 09/14/2014 16:04:31 09/14/2014 18:42:39 Gynecologic examination 45642224 Irregular periods 08841778 [id number] MD Guille Clayton ([place] [address]) [address] [place] [address] 09/17/2015 16:08:29 09/17/2015 17:46:14 Gynecologic examination 74845615 Z01.419 Screening for malignant neoplasm of breast 687520969 Z12.39 [id number] MD Guille Clayton ([place] [address]) [address] [facility] [place] [address] 09/18/2016 16:16:21 09/18/2016 17:46:10 Gynecologic examination 05202984 Z01.419 Screening for malignant neoplasm of breast 015191749 Z12.39 [id number] MD Guille Clayton ([place] [address]) [address] [facility] [facility] [place] [address] 09/22/2017 16:22:43 09/24/2017 09:09:09 Body mass index 20-24 - normal 238801938 Z68.22 Gynecologi c examination 42623261 Z01.419 Screening for malignant neoplasm of breast 564005150 Z12.39 [id number] MD Guille Clayton 14 OB [address] [facility] [place] [address] 12/06/2018 16:05:04 12/07/2018 08:44:25 Gynecologic examination 44656501 Z01.419 Screening for malignant neoplasm of breast 062585032 Z12.39 Contracept ion care management 892093131 Z30.9 [id number] MD Guille Clayton 14 OB [address] [facility] [place] [address] 06/08/2020 13:55:56 06/11/2020 14:01:29 Gynecologic examination 96111877 Z01.419 Screening for malignant neoplasm of breast 963725217 Z12.39 [id number] MD Guille Clayton 14 OB [address] [facility] [place] [address] 06/14/2021 13:51:08 06/17/2021 05:32:36 Contraception care management 750801932 Z30.9 Gynecologi c examination 56615102 Z01.419 Screening for malignant neoplasm of breast 528854698 Z12.39 [id number] MD Guille Clayton 14 OB [address] [facility] [place] [address] 06/20/2022 13:47:48 06/23/2022 15:52:38 Contraception care management 795305506 Z30.9 Gynecologi c examination 99342695 Z01.419 Screening for malignant neoplasm of breast 105374431 Z12.39 [id number] MD Guille Clayton 14 OB [address] [facility] [place] [address] 06/29/2023 14:45:57 06/30/2023 16:04:33 Gynecologic examination 37894261 Z01.419 Screening for malignant neoplasm of breast 348381442 Z12.39 Amenorrhea 07852392 N91. 2 [id number] MD Guille Clayton 14 OB [address] [facility] [place] [address] 07/08/2024 09:59:26 07/11/2024 13:49:24 Depression screening 760700310 Z13.31 Gynecologi c examination 87882162 Z01.419 Screening for malignant neoplasm of breast 679376997 Z12.39 Menopause present [id number] 006 N95.1 Health Concerns Section Related Observation LastModified by Organization Detai ls LastModified Time None Recorded Concern Status LastModified by Organization Details LastModified Time None Recorded Advance Directives Directive N: Payers Encounter Date Sequence Insurance Name Policy Number Policy Becerril Covered Member ID Becerril Member ID Guarantor Name 06/08/2020 1 [facility] [id number] Keyona Hale Llanos [id number] Keyona M Llanos 06/14/2021 1 [employer] [id number] Keyona M Llanos [id number] Keyona M Llanos 06/20/2022 1 [employer] [id number] Keyona M Llanos [id number] Keyona M Llanos 06/29/2023 1 [employer] [id number] Keyona M Llanos [id number] Keyona M Llanos 07/08/2024 1 [facility] [id number] Keyona M Llanos [id number] Keyona M Llanos Notes Date Note Type Note Provider Name and Address Organization Details Recorded Time 06/08/2020 text/html Annual GYNReport ed bypatient.Menstrual cycle:Normal menses Urinary symptoms:No hematuria; No incontinence Vulva:No genital lesion Vagina:Normal vaginal discharge Breast:No breast pain; No breast lump; No nipple discharge Current Contraception:Oral contraceptives Sexual complaints:No sexual complaints; No pain during intercourse; Normal libido Menopausal Symptoms:No menopausal symptoms; Normal vaginal lubrication Psychological symptoms:No depression; No anxiety; No PMDD Artemio Quintana MD Attn: [address] [place], [address], [place] [facility] 06/08/2020 14:23:30 06/14/2021 text/html Annual GYNReport ed bypatient.Menstrual cycle:Normal menses Urinary symptoms:No hematuria; No incontinence Vulva:No genital lesion Vagina:Normal vaginal discharge Breast:No breast pain; No breast lump; No nipple discharge Current Contraception:Oral contraceptives Sexual complaints:No sexual complaints; No pain during intercourse; Normal libido Menopausal Symptoms:No menopausal symptoms; Normal vaginal lubrication Psychological symptoms:No depression; No anxiety; No PMDD Artemio Quintana MD Attn: [address] [place], [address], [facility] 06/14/2021 14:33:29 06/20/2022 text/html Annual GYNReport ed bypatient.Menstrual cycle:no period on continuous pills Urinary symptoms:No hematuria; No incontinence Vulva:No genital lesion Vagina:Normal vaginal discharge Breast:No breast pain; No breast lump; No nipple discharge Current Contraception:Oral contraceptives Sexual complaints:No sexual complaints; No pain during intercourse; Normal libido Menopausal Symptoms:No menopausal symptoms; Normal vaginal lubrication Psychological symptoms:No depression; No anxiety; No PMDD New Lupus disagnosis recently Artemio Quintana MD Attn: [address] [place], [address], [facility] 06/20/2022 14:25:25 06/29/2023 text/html Annual GYNReport ed bypatient.Menstrual cycle:no period on continuous pills Urinary symptoms:No hematuria; No incontinence Vulva:No genital lesion Vagina:Normal vaginal discharge Breast:No breast pain; No breast lump; No nipple discharge Current Contraception:Oral contraceptives Sexual complaints:No sexual complaints; No pain during intercourse; Normal libido Menopausal Symptoms:No menopausal symptoms; Normal vaginal lubrication Psychological symptoms:No depression; No anxiety; No PMDD New Lupus disagnosis last year stopped OCPs in August had some menopausal symptoms, but they have alleviated.random spotting has developed over last few months Artemio Quintana MD Attn: [address] [place], [address], [facility] 06/29/2023 15:21:50 07/08/2024 text/html Annual GYNReport ed bypatient.Urinary symptoms:No hematuria; No incontinence Vulva:No genital lesion Vagina:Normal vaginal discharge Breast:No breast pain; No breast lump; No nipple discharge Current Contraception:Oral contraceptives Sexual complaints:No sexual complaints; No pain during intercourse; Normal libido Menopausal Symptoms:No menopausal symptoms; Normal vaginal lubrication Psychological symptoms:No depression; No anxiety; No PMDD possible New Lupus diagnosis in 2021 was debunked recently stopped OCPs in August 2022 FSH and LH show was menopausal last year ( 06/2023) significant menopausal issues, no bleeding Artemio Quintana MD Attn: [address] [facility], [place], [address], [place] [facility] 07/08/2024 10:34:58 OBGyn Episode No OBEpisode recorded.
--- OUTSIDE RECORDS SUMMARY | 2024-10-07 07:57 | XMS_ITS | Referral Summary ---
Author Organization [facility] Address [address] [place] [address] Care Team Providers Care Pastoral Counselor Name Role Phone Unavailable Primary Care Provider Unavailabl e Source Comments [facility],non-owned Affiliates and Associated Physician Practices is amultiple site organization consisting of ambulatory clinics and hospital sitesin [place], [place], [place] and [place]. This disclosure is being madepursuant to the Care Everywhere program and may not contain all information available regarding this patient. Last updated 18.[facility] [employer] Allergies Active Allergy Reactions Criticality Noted Date Comments Codeine Medium 09/17/2016 Medications * Be aware that medications may not be up to date on this document. Alwaysverify current medications with the patient. Medication Sig Dispensed Refills Start Date End Date Status hydroxychloroquine (Plaquenil) 200 MG tablet 400 MG ORALLY DAILY 11/02/2023 Active ALPRAZolam (Xanax) 0.25 MG tablet Take 1 (one) tablet by mouth once daily as needed Active Immunizations Name Administration Dates Next Due INFLUENZA VACCINE, QUADR. (F LUZONE; FLULAVAL; FLUARIX; AFLURIA QUADRIVALENT; 6MO+), 0.5 ML (IIV4) 05/14/2019,07/03/2017 Social History Tobacco Use Types Packs/Day Years Used Date Smoking Tobacco: Never Smokeless Tobacco: Never Tobacco Cessation:Counseling Given: Not Answered Sex and Gender Information Value Date Recorded Sex Assigned at Not on file Gender Identity Not on file Sexual Orientation Not on file Last Filed Vital Signs Vital Sign Reading Time Taken Comments Blood Pressure 124/79 05/05/2024 3:09 PM CDT Pulse 83 05/05/2024 3:09 PM CDT Temperature 36.4 C (97.5 F) 05/05/2024 3:09 PM CDT Respiratory Rate 16 02/15/2019 5:55 PM CDT Oxygen Saturation 97% 05/05/2024 3:09 PM CDT Inhaled Oxygen Concentration - - Weight 67.9 kg (149 lb 9.6 oz) 05/05/2024 3:09 P M CDT Height 172.7 cm (5' 7.99 ) 05/05/2024 3:09 PM CD T Body Mass Index 22.75 05/05/2024 3:09 PM CDT Plan of Treatment Not on file
--- OUTSIDE RECORDS SUMMARY | 2024-10-07 07:57 | XMS_ITS | Clinical Summary ---
Author Organization [facility] Rebelle Bridal Address [address] [place] [address] Care Team Providers Care Ground Instructor Advanced Name Role Phone Unavailable Primary Care Provider Unavailabl e Source Comments [facility],non-owned Affiliates and Associated Physician Practices is amultiple site organization consisting of ambulatory clinics and hospital sitesin [place], [place], [place] and [place]. This disclosure is being madepursuant to the Care Everywhere program and may not contain all information available regarding this patient. Last updated 18.[facility] Allergies Active Allergy Reactions Criticality Noted Date [...] AFLURIA QUADRIVALENT; 6MO+), 0.5 ML (IIV4) 05/14/2019,07/03/2017 Family History Medical History Relation Name Comments Cancer - Breast Mother Relation Name Status Comments Mother Social History Tobacco Use Types Packs/Day Years [...] 05/05/2024 3:09 PM CDT Plan of Treatment Health Maintenance Due Date Last Done Comments COLOGUARD (AGES 45-75) - COLON CA SCREENING 1971 COLON MONITORING 1971 COLONOSCOPY - COLON CA SCREENING 1971 CT COLONOGRAPHY - COLON CA SCREENING 1971 Colorectal Cancer Screening 1971 FIT - COLON CA SCREENING 1971 FLEX SIG - COLON CA SCREENING 1971 LIPID TESTING 1971 MAMMOGRAM 1971 PAP SMEAR 1971 HIV SCREENING 1986 HEPATITIS C SCREENING 05/29/1989 DTAP/TDAP/TD VACCINES (1 - Tdap) 1990 HEPATITIS B VACCINE (1 of 3 - 19+ 3-dose series) 1990 PNEUMOCOCCAL VACCINE 50+ (1 of 1 - PCV) 2021 ZOSTER VACCINE (1 of 2) 2021 COVID-19 VACCINE ( - season) 2024 07/18/2022, 12/06/2021, 06/07/2021, Additional history exists INFLUENZA VACCINE (#1) 2024 , 06/07/2021, 06/05/2020, Additional history exists DEPRESSION SCREENING 08/17/2024 HIB VACCINE Aged Out No longer eligi ble based on patient's age to complete this topic HPV VACCINE Aged Out No longer eligi ble based on patient's age to complete this topic MENINGOCOCCAL (Group B) VACCINE Aged Out No longer eligible based on patient's age to complete this topic MENINGOCOCCAL VACCINE Aged Out No maria isabel shade eligible based on patient's age to complete this topic PNEUMOCOCCAL VACCINE Aged Out No long er eligible based on patient's age to complete this topic
--- OUTSIDE RECORDS SUMMARY | 2024-10-07 07:57 | XMS_ITS | Continuity of Care Document ---
Author Organization [facility] Address [address] [place] [address] Phone Care Team Providers Care Cancer Registry Coordinator Name Role Phone Robert Orourke MD Unavailable Unavailable Allergies, Adverse Reactions, Alerts Substance Reaction Status Criticality CODEINE HCL Active No Information Medications Medication Instructions Dosage Effective Dates (start - stop) Status Comments 1 mg-20 mcg (24)/75 mg (4) tablet take 1 tablet by oral route every day 1.00 tablet - Active Procedures Procedure Date SCODI, Retina Corneal Topography No Charge Refraction Fundus Photography W/ Report Office/outpatient Visit, [facility] Advance Directives Directive Yes / No Effective Date File Name No Information Encounters Encounter Description Practice Location Reason(s) For Visit Diagnoses Date Provider Providers Copied on Encounter [facility], [address], [place], [place], [id number], [place] tel:[phone] [facility] Professional MAC OCT ONLY (chief complaint) No Information 3 Sharad Jones. [address] [facility] [address], [place], [place], [id number], [place]. tel:[phone] Referring Provider: Alize Elliott OD, [address] [facility], [place], [address]. tel:[phone] Office/outpa tient Visit, [facility], [address], [place], [place], [id number], [place] tel:[phone] SEC [facility] Professional complete exam (chief complaint) Age-related nuclear cataract, bilateralHype ropic astigmatism of both eyesAnatomica l narrow angle of both eyes 1 Sharad Jones. [address] [facility], [place], [place], [address], [place]. tel:[phone] Referring Provider: Zi Mcclure OD, [facility] [address] [facility], [place], [address]. tel:[phone] [facility] Eye [facility], [address], [place], [place], [id number], [place] tel:[phone] SEC [place] [facility] Professional No Information No Information Family History Family Member Type Diagnosis Age At Onset No Information Payers Payer name Insurance type Covered democrat ID Stephanie flores(s) Feliciana [id number] Social History Type Description Quantity Date Captured Comments Alcohol Use Details Caffeine Use Details Tobacco Use Status Current non-smoker Smoking Status Never smoker Non-Smoking Tobacco Use Details : No Details Available : No Details Available Sex Female Chief Complaint And Reason For Visit From encounter dated '12/23/2022 14:15'. MAC OCT ONLY (chief complaint). Description: The 52 year old patient presents for evaluation of MACOCT ONLY in the right eye and left eye. Reason For Referral Reason For Referral No Information Plan Of Treatment Date Type Action Status Patient Education The Eye: Anatomy Sketch completed History Of Present Illness Encounter Date Complaint History Of Prese nt Illness MAC OCT ONLY The 52 year old patient presents for evaluation of MAC OCT ONLY in the right eye and left eye. complete exam The 50 year old female presents for evaluation of decreased vision. She has a long-standing history of high hyperopia and astigmatism corrected with RGP CTLs or glasses. She can no longer tolerate RGPs and wears glasses [employer] now. However, over the last several years she has had worsening vision even with her glasses. Patient states she has difficulty seeing at night due to glare with both eyes. Patient has trouble seeing print on the computer with both eyes even with glasses. Patient has difficulty reading small print as in seeing labels at the grocery store with both eyes. Functional Status Date Functional Assessmen t No Information Instructions Date Instruction Additional Infor gato Impression/Plan Assessments Type Assessment Date No Information Patient Care Teams Name Effective Dates (start - stop) Status Members No Information
--- OUTSIDE RECORDS SUMMARY | 2024-10-07 07:57 | XMS_ITS | Patient Health Summary ---
Author Organization [facility] Address [address] [place] [address] Care Team Providers Care Production Control Pegboard Clerk Name Role Phone Unavailable Primary Care Provider Unavailabl e Note from [facility],non-owned Affiliates and Associated Physician Practices is amultiple site organization consisting of ambulatory clinics and hospital sitesin [place], [place], [place] and [place]. This disclosure is being madepursuant to the Care Everywhere program and may not contain all information available regarding this patient. Last updated 18.[facility] Allergies * Codeine-Medium Criticality Medications * Be aware that medications may not be up to date on this document. Alwaysverify current medications with the patient. * hydroxychloroquine (Plaquenil) 200 MG tablet(Started 11/02/2023) 400 MG ORALLY DAILY * ALPRAZolam (Xanax) 0.25 MG tablet Take 1 (one) tablet by mouth once daily as needed Immunizations * INFLUENZA VACCINE, QUADR. (FLUZONE; FLULAVAL; FLUARIX; AFLURIA QUADRIVALENT; 6MO+), 0.5 ML (IIV4)(Given 05/14/2019, 07/03/2017) Social History Tobacco Use Types Packs/Day Years [...] Mass Index 22.75 05/05/2024 3:09 PM CDT Procedures * XR HAND LEFT 3VW OR MORE(Performed 04/07/2024) Performed for Positive MIRI (antinuclear antibody) * XR HAND RIGHT 3VW OR MORE(Performed 04/07/2024) Performed for Positive MIRI (antinuclear antibody) * MIRI BLOOD SINGLE PATTERN(Performed 04/07/2024) Performed for Positive MIRI (antinuclear antibody) * MIRI BLOOD SINGLE PATTERN(Performed 04/07/2024) Performed for Positive MIRI (antinuclear antibody) * MIRI HEP-2 IGG BY IFA(Performed 04/07/2024) Performed for Positive MIRI (antinuclear antibody) * VALLE/MARINE METEOROLOGIST (BRENDEN) ANTIBODY IGG(Performed 04/07/2024) Performed for Positive MIRI (antinuclear antibody) * SS-A (SJOGREN'S) 52+60 ANTIBODIES(Performed 04/07/2024) Performed for Positive MIRI (antinuclear antibody) * DNA ANTIBODY DS CRITHIDIA TITER(Performed 04/07/2024) Performed for Positive MIRI (antinuclear antibody) * DNA ANTIBODY DOUBLE STRANDED(Performed 04/07/2024) Performed for Positive MIRI (antinuclear antibody) * VALLE (SM) ANTIBODY BRENDEN(Performed 04/07/2024) Performed for Positive MIRI (antinuclear antibody) * RHEUMATOID FACTOR BLOOD QUANTITATIVE(Performed 04/07/2024) Performed for Positive MIRI (antinuclear antibody) * CYCLIC CITRULLINATED PEPTIDE(CCP) AB IGG(Performed 04/07/2024) Performed for Positive MIRI (antinuclear antibody) * C-REACTIVE PROTEIN(Performed 04/07/2024) Performed for Positive MIRI (antinuclear antibody) * ERYTHROCYTE SEDIMENTATION RATE(Performed 04/07/2024) Performed for Positive MIRI (antinuclear antibody) * PROTEIN CREATININE RATIO URINE RANDOM PNL(Performed 04/07/2024) Performed for Positive MIRI (antinuclear antibody) * URINALYSIS W/MICROSCOPIC REFLEX TO CULTURE(Performed 04/07/2024) Performed for Positive MIRI (antinuclear antibody) * CENTROMERE B ANTIBODIES(Performed 04/07/2024) Performed for Positive MIRI (antinuclear antibody) * CENTROMERE ANTIBODY(Performed 04/07/2024) Performed for Positive MIRI (antinuclear antibody) * SS-B (SJOGREN'S) ANTIBODY(Performed 04/07/2024) Performed for Positive MIRI (antinuclear antibody) * SCLERODERMA COMPREHENSIVE AB PANEL(Performed 04/07/2024) Performed for Positive MIRI (antinuclear antibody) * MIRI BLOOD SCREEN W/REFLEX TITER(Performed 04/07/2024) Performed for Positive MIRI (antinuclear antibody) * COMPREHENSIVE METABOLIC PANEL(Performed 04/07/2024) Performed for Positive MIRI (antinuclear antibody) * CBC W AUTO DIFFERENTIAL(Performed 04/07/2024) Performed for Positive MIRI (antinuclear antibody) Results * XR Hand Right 3Vw or More (04/07/2024 11:12 AM CDT) Anatomical Region Laterality Modality Wrist / Hand Radiographic Swetha ging 04/07/2024 12:2 1 PM CDT Impressions 04/07/2024 12:23 PM CDT IMPRESSION: Mild periarticular bony demineralization without erosive changes nor significant malalignment. > Interpreting Provider: Speedy Perez MD on 04/07/2024 12:23 PM Narrative 04/07/2024 12:23 PM CDT PROCEDURE: XR HAND RIGHT 3VW OR MORE DATE/TIME OF EXAM: 04/07/2024 11:12 AM CLINICAL INFORMATION: None relevant/not provided if blank. Indication: R76.8: Positive MIRI (antinuclear antibody) Additional History: COMPARISON: None. FINDINGS: PA, AP, and lateral views of the right hand were obtained and appears demonstrate mild periarticular bony demineralization. The osseous structures are normally aligned. The joint spaces appear intact. No evidence of fracture, dislocation, erosive changes nor bone or joint space destruction identified. Procedure Note Speedy Perez MD - 04/07/2024 PROCEDURE: XR HAND RIGHT 3VW OR MORE DATE/TIME OF EXAM: 04/07/2024 11:12 AM CLINICAL INFORMATION: None relevant/not provided if blank. Indication: R76.8: Positive MIRI (antinuclear antibody) Additional History: COMPARISON: None. FINDINGS: PA, AP, and lateral views of the right hand were obtained and appears demonstrate mild periarticular bony demineralization. The osseous structures are normally aligned. The joint spaces appear intact. No evidence of fracture, dislocation, erosive changes nor bone or jointspace destruction identified. IMPRESSION: Mild periarticular bony demineralization without erosive changes nor significant malalignment. > Interpreting Provider: Speedy Perez MD on 04/07/2024 12:23 PM Brant Vargas MD DIAGNOSTIC IMAGING O RDERABLES * XR Hand Left 3Vw or More (04/07/2024 11:12 AM CDT) Anatomical Region Laterality Modality Wrist / Hand Radiographic Swetha ging 04/07/2024 12:2 3 PM CDT Impressions 04/07/2024 12:24 PM CDT IMPRESSION: Mild periarticular bony demineralization without evidence of erosive changes or osseous malalignment. Joint spaces appear intact. > Interpreting Provider: Speedy Perez MD on 04/07/2024 12:24 PM Narrative 04/07/2024 12:24 PM CDT PROCEDURE: XR HAND LEFT 3VW OR MORE DATE/TIME OF EXAM: 04/07/2024 11:12 AM CLINICAL INFORMATION: None relevant/not provided if blank. Indication: R76.8: Positive MIRI (antinuclear antibody) Additional History: COMPARISON: None. FINDINGS: PA, AP and lateral views of the left hand were obtained and demonstrates mild periarticular bony demineralization. No evidence of fracture, dislocation, bone or joint space destruction, osseous malalignment nor erosive changes were identified. The bony tru appeared intact. Procedure Note Speedy Perez MD - 04/07/2024 PROCEDURE: XR HAND LEFT 3VW OR MORE DATE/TIME OF EXAM: 04/07/2024 11:12 AM CLINICAL INFORMATION: None relevant/not provided if blank. Indication: R76.8: Positive MIRI (antinuclear antibody) Additional History: COMPARISON: None. FINDINGS: PA, AP and lateral views of the left hand were obtained and demonstrates mild periarticular bony demineralization. No evidence of fracture, dislocation, bone or joint space destruction, osseous malalignment nor erosive changes were identified. The bony tru appeared intact. IMPRESSION: Mild periarticular bony demineralization without evidence of erosive changes or osseous malalignment. Joint spaces appear intact. > Interpreting Provider: Speedy Perez MD on 04/07/2024 12:24 PM Brant Vargas MD DIAGNOSTIC IMAGING O RDERABLES * (ABNORMAL) MIRI BLOOD SINGLE PATTERN (04/07/2024 11:06 AM CDT) Only the most recent of2 resultswithin the time period is included. Pathologist [facility] MIRI Pattern Homogeneo us(A) 04/09/2024 6:26 PM CDT [facility] ([facility]) MIRI Titer 1:320(A) 04/09/2024 6:26 PM CDT [facility] ([facility]) Comment: Performed By: [facility] [address] [place] [address] It Audit Manager: Ruben Christianson MD, PhD CLIA Number: [id number] Blood BLOOD SPECIMEN / Unknown Lab Venipuncture / Unknown 04/07/2024 11:06 AM CDT 04/07/2024 11:28 AM CDT Brant Vargas MD LAB - [facility]Y [facility] [address] [place] [address], [facility] * (ABNORMAL) MIRI HEP-2 IGG BY IFA (04/07/2024 11:06 AM CDT) MIRI HEp-2 IgG Detected (H) <1:80 04/09/2024 1:25 PM CDT [facility] ([facility]) MIRI Interpretive Comment See Note 04/09/2024 1:25 PM CDT [facility] ([facility]) Comment: Speckled Pattern Clinical associations: SLE, SSc, SjS, DM, PM, MCTD, UCTD. May also be found in healthy individuals Main autoantibodies: Anti-SSA-52 (Ro52), anti-SSA-60 (Ro60), anti-SS-B/LA, anti-Mamadou-1 (anti-Scl-70), Valle, anti-U1-MARINE METEOROLOGIST, anti-U2-MARINE METEOROLOGIST, anti-Mi-2, anti-p155/140 (TIF1g), anti-Ku, anti-RNA polymerase, anti-DFS70/LEDGF-P75 List of Abbreviations Antisynthetase syndrome (ARS), chronic active hepatitis (CAH), inflammatory myopathies (IM) [dermatomyositis (DM), polymyositis (PM), necrotizing autoimmune myopathy (NAM)', interstitial lung disease (ILD), juvenile idiopathic arthritis (VICTOR MANUEL), mixed connective tissue disease (MCTD), primary biliary cholangitis (PBC), rheumatoid arthritis (RA), systemic autoimmune rheumatic diseases (SARD), Sjogren syndrome (SjS), systemic lupus erythematosus (SLE), systemic sclerosis (SSc), undifferentiated connective tissue disease (UCTD). INTERPRETIVE INFORMATION: MIRI Interpretive Comment Presence of antinuclear antibodies (MIRI) is a hallmark feature of systemic autoimmune rheumatic diseases (SARD). However, MIRI lacks diagnostic specificity and is associated with a variety of diseases (cancers, autoimmune, infectious, and inflammatory conditions) and may also occur in healthy individuals in varying prevalence. The lack of diagnostic specificity requires confirmation of positive MIRI by more specific serologic tests. MIRI (nuclear reactivity) positive patterns reported include centromere, homogeneous, nuclear dots, nucleolar, or speckled. MIRI (cytoplasmic reactivity) positive patterns reported include reticular/AMA, discrete/GW body-like, polar/golgi-like, cytoplasmic speckled or rods and rings. All positive patterns are reported to endpoint titers (1:2560). Reported patterns may help guide differential diagnosis, although they may not be specific for individual antibodies or diseases. Mitotic staining patterns not reported. Negative results do not necessarily rule out SARD. Performed By: [facility] [address] [place] [address] It Audit Manager: Ruben Christianson MD, PhD CLIA Number: [id number] Blood BLOOD SPECIMEN / Unknown Lab Venipuncture / Unknown 04/07/2024 11:06 AM CDT 04/07/2024 11:27 AM CDT Brant Vargas MD LAB - SEROLOGY ORDER TAMMY [facility]) [address] [place] [address], [facility] * (ABNORMAL) SCLERODERMA COMPREHENSIVE AB PANEL (04/07/2024 11:06 AM CDT) MIRI HEp-2 IgG Detected(H ) <1:80 04/11/2024 5:06 AM CDT [facility] ([facility]) MIRI Interpretive Comment See Note 04/11/2024 5:06 AM CDT [facility] ([facility]) Comment: Homogeneous Pattern Clinical associations: SLE, drug-induced SLE or VICTOR MANUEL. Main autoantibodies: Anti-dsDNA, anti-histones or anti-chromatin (anti-nucleosome) List of Abbreviations Antisynthetase syndrome (ARS), chronic active hepatitis (CAH), inflammatory myopathies (IM) [dermatomyositis (DM), polymyositis (PM), necrotizing autoimmune myopathy (NAM)', interstitial lung disease (ILD), juvenile idiopathic arthritis (VICTOR MANUEL), mixed connective tissue disease (MCTD), primary biliary cholangitis (PBC), rheumatoid arthritis (RA), systemic autoimmune rheumatic diseases (SARD), Sjogren syndrome (SjS), systemic lupus erythematosus (SLE), systemic sclerosis (SSc), undifferentiated connective tissue disease (UCTD). INTERPRETIVE INFORMATION: MIRI Interpretive Comment Presence of antinuclear antibodies (MIRI) is a hallmark feature of systemic autoimmune rheumatic diseases (SARD). However, MIRI lacks diagnostic specificity and is associated with a variety of diseases (cancers, autoimmune, infectious, and inflammatory conditions) and may also occur in healthy individuals in varying prevalence. The lack of diagnostic specificity requires confirmation of positive MIRI by more specific serologic tests. MIRI (nuclear reactivity) positive patterns reported include centromere, homogeneous, nuclear dots, nucleolar, or speckled. MIRI (cytoplasmic reactivity) positive patterns reported include reticular/AMA, discrete/GW body-like, polar/golgi-like, cytoplasmic speckled or rods and rings. All positive patterns are reported to endpoint titers (1:2560). Reported patterns may help guide differential diagnosis, although they may not be specific for individual antibodies or diseases. Mitotic staining patterns not reported. Negative results do not necessarily rule out SARD. SCL-70 Antibody 7 0 - 40 AU/mL 04/11/2024 5:06 AM [facility] ([facility]) Comment: INTERPRETIVE INFORMATION: Scleroderma (Scl-70) (BRENDEN) Ab, IgG 29 AU/mL or Less ............. Negative 30 - 40 AU/mL ................ Equivocal 41 AU/mL or Greater .......... Positive The presence of Scl-70 antibodies (also referred to as topoisomerase I, mamadou-I or MAYI) is considered diagnostic for systemic sclerosis (SSc). Scl-70 antibodies alone are detected in about 20 percent of SSc patients and are associated with the diffuse form of the disease, which may include specific organ involvement and poor prognosis. Scl-70 antibodies have also been reported in a varying percentage of patients with systemic lupus erythematosus (SLE). Scl-70 (mamadou-1) is a DNA binding protein and anti-DNA/DNA complexes in the sera of SLE patients may bind to mamadou-I, leading to a false-positive result. The presence of Scl-70 antibody in sera may also be due to contamination of recombinant Scl-70 with DNA derived from cellular material used in immunoassays. Strong clinical correlation is recommended if both Scl-70 and dsDNA antibodies are detected. Negative results do not necessarily rule out the presence of SSc. If clinical suspicion remains, consider further testing for centromere, RNA polymerase III and U3-MARINE METEOROLOGIST, PM/Scl, or Th/To antibodies. RNA Polymerase 3 Antibody IgG 4 0 - 19 Units 04/11/2024 5:06 AM [facility] ([facility]) Comment: INTERPRETIVE INFORMATION: RNA Polymerase III Antibody, IgG 19 Units or less ......Negative 20 - 39 Units .........Weak Positive 40 - 80 Units .........Moderate Positive 81 Units or greater ...Strong Positive The presence of RNA polymerase III IgG antibody, when considered in conjunction with other laboratory and clinical findings, is an aid in the diagnosis of systemic sclerosis (SSc) with increased incidence of skin involvement and renal crisis with the diffuse cutaneous form of SSc. RNA polymerase III IgG antibody occur in about 11-23 percent of SSc patients, and typically in the absence of anti-centromere and anti-Scl-70 antibodies. A negative result indicates no detectable IgG antibodies to the dominant antigen of RNA polymerase III and does not rule out the possibility of SSc. False-positive results may also occur due to non-specific binding of immune complexes. Strong clinical correlation is recommended. If clinical suspicion remains, consider additional testing for other antibodies associated with SSc, including centromere, Scl-70, U3-MARINE METEOROLOGIST, PM/Scl, or Th/To. Valle/MARINE METEOROLOGIST (BRENDEN) Antibody IgG 2 0 - 19 Units 04/11/2024 5:06 AM T [facility] ([facility]) Comment: INTERPRETIVE INFORMATION: Valle/MARINE METEOROLOGIST (BRENDEN) Antibody, IgG 19 Units or Less ............. Negative 20 to 39 Units ............... Weak Positive 40 to 80 Units ............... Moderate Positive 81 Units or greater .......... Strong Positive Valle/MARINE METEOROLOGIST antibodies are frequently seen in patients with mixed connective tissue disease (MCTD) and are also associated with other systemic autoimmune rheumatic diseases (SARDs) such as systemic lupus erythematosus (SLE), systemic sclerosis, and myositis. Antibodies targeting the Valle/MARINE METEOROLOGIST antigenic complex also recognize Valle antigens, therefore, the Valle antibody response must be considered when interpreting these results. PM/Scl 100 Antibody IgG Negative Negative 04/11/2024 5:06 AM [facility]) Comment: INTERPRETIVE INFORMATION: PM/Scl-100 Antibody, IgG by Immunoblot The presence of PM/Scl-100 IgG antibody along with a positive MIRI IFA nucleolar pattern is associated with connective tissue diseases such as polymyositis (PM), dermatomyositis (DM), systemic sclerosis (SSc), and polymyositis/systemic sclerosis overlap syndrome. The clinical relevance of PM/Scl-100 IgG antibody with a negative MIRI IFA nucleolar pattern is unknown. PM/Scl-100 is the main target epitope of the PM/Scl complex, although antibodies to other targets not detected by this assay may occur. This test was developed and its performance characteristics determined by [facility]. It has not been cleared or approved by the [place] Food and Drug Administration. This test was performed in a CLIA certified laboratory and is intended for clinical purposes. Fibrillarin (U3 MARINE METEOROLOGIST) Antibody IgG Negative Negative 04/11/2024 5:06 AM CDT [facility] ([facility]) Comment: Interpretive Information: Fibrillarin (U3 MARINE METEOROLOGIST) Antibody, IgG The presence of fibrillarin (U3-MARINE METEOROLOGIST) IgG antibodies in association with an MIRI IFA nucleolar pattern is suggestive of systemic sclerosis (SSc). In SSc, these antibodies are associated with distinct clinical features, such as younger age at disease onset, frequent internal organ involvement (pulmonary hypertension, myositis and renal disease). Fibrillarin antibodies are detected more frequently in patients with SSc compared to other ethnic groups. Strong correlation with MIRI IFA results is recommended. In a multi-ethnic cohort of SSc patients (n=98), U3-MARINE METEOROLOGIST antibodies detected by immunoblot had an agreement of 98.9 percent with the gold standard immunoprecipitation (IP) assay. Approximately 71 percent (5/7) of the borderline U3-MARINE METEOROLOGIST results with MIRI nucleolar pattern in this cohort were IP negative. This test was developed and its performance characteristics determined by [facility]. It has not been cleared or approved by the [place] Food and Drug Administration. This test was performed in a CLIA certified laboratory and is intended for clinical purposes. Performed By: [facility] [address] [place] [address] It Audit Manager: Ruben Christianson MD, PhD CLIA Number: [id number] Blood BLOOD SPECIMEN / Unknown Lab Venipuncture / Unknown 04/07/2024 11:06 AM CDT 04/07/2024 11:28 AM CDT Brant Vargas MD LAB - SEROLOGY ORDER TAMMY [facility]) [address] [place] [address] * SS-A (SJOGREN'S) 52+60 ANTIBODIES (04/07/2024 11:06 AM CDT) [facility] SS-A 52 Antibody 1 0 - 40 AU/mL 04/10/2024 12:02 PM CDT [facility] ([facility]) Comment: INTERPRETIVE INFORMATION: SSA-52 (Ro52) (BRENDEN) Antibody, IgG 29 AU/mL or Less ............. Negative 30 - 40 AU/mL ................ Equivocal 41 AU/mL or Greater .......... Positive SSA-52 (Ro52) and/or SSA-60 (Ro60) antibodies are associated with a diagnosis of Sjogren syndrome, systemic lupus erythematosus (SLE), and systemic sclerosis. SSA-52 antibody overlaps significantly with the major SSc-related antibodies. SSA-52 (Ro52) antibody occurs frequently in patients with inflammatory myopathies, often in the presence of interstitial lung disease. SS-A 60 Antibody 0 0 - 40 AU/mL 04/10/2024 12:02 PM CDT [facility] ([facility]) Comment: REFERENCE INTERVAL: SSA-60 (Ro60) (BRENDEN) Antibody, IgG 29 AU/mL or Less ............. Negative 30 - 40 AU/mL ................ Equivocal 41 AU/mL or Greater .......... Positive Performed By: [facility] [address] [place] [address] It Audit Manager: Ruben Christianson MD, PhD CLIA Number: [id number] Blood BLOOD SPECIMEN / Unknown Lab Venipuncture / Unknown 04/07/2024 11:06 AM CDT 04/07/2024 11:28 AM CDT Brant Vargas MD LAB - CHEMISTRY WILL [facility] Organization Address City/State/ZIP Co de Phone Number [facility]) [address] [place] [address], [facility] * VALLE/MARINE METEOROLOGIST (BRENDEN) ANTIBODY IGG (04/07/2024 11:06 AM CDT) Valle/MARINE METEOROLOGIST (BRENDEN) Antibody IgG 2 0 - 19 Units 04/10/2024 10:29 AM CDT [facility] ([facility]) Comment: INTERPRETIVE INFORMATION: Valle/MARINE METEOROLOGIST (BRENDEN) Antibody, IgG 19 Units or Less ............. Negative 20 to 39 Units ............... Weak Positive 40 to 80 Units ............... Moderate Positive 81 Units or greater .......... Strong Positive Valle/MARINE METEOROLOGIST antibodies are frequently seen in patients with mixed connective tissue disease (MCTD) and are also associated with other systemic autoimmune rheumatic diseases (SARDs) such as systemic lupus erythematosus (SLE), systemic sclerosis, and myositis. Antibodies targeting the Valle/MARINE METEOROLOGIST antigenic complex also recognize Valle antigens, therefore, the Valle antibody response must be considered when interpreting these results. Performed By: [facility] [address] [place] [address] It Audit Manager: Ruben Christianson MD, PhD CLIA Number: [id number] Blood BLOOD SPECIMEN / Unknown Lab Venipuncture / Unknown 04/07/2024 11:06 AM CDT 04/07/2024 11:27 AM CDT Brant Vargas MD LAB - CHEMISTRY ORDE CARLI Performing Organization Address [facility] de Phone Number [facility] ([facility]) [address] [place] [address], [facility] * (ABNORMAL) CENTROMERE B ANTIBODIES (04/07/2024 11:06 AM CDT) [facility] Centromere B Antibody 2.4(H) 0.0 - 0.9 AI 04/08/2024 11:13 AM CDT [facility] ([facility]) Blood BLOOD SPECIMEN / Unknown Lab Venipuncture / Unknown 04/07/2024 11:06 AM CDT 04/07/2024 11:28 AM CDT Narrative [facility] ([facility]) - 04/08/2024 11:13 AM CDT Performed at: - [facility] [address] [place], [place] [id number] Bird Trapper: Raman Banegas PhD, Phone: [phone] Brant Vargas MD LAB - SEROLOGY ORDER TAMMY Performing Organization Address City/[facility] Co de Phone Number [facility] ([facility]) [address] [place] [address], [facility] * DNA ANTIBODY DS CRITHIDIA TITER (04/07/2024 11:06 AM CDT) dsDNA Antibody IgG <1:10 <1:10 2023 1:13 PM CDT [facility] ([facility]) Comment: INTERPRETIVE INFORMATION: Double-Stranded DNA (dsDNA) Antibody, IgG by IFA (using Crithidia luciliae) Positivity for anti-double stranded DNA (anti-dsDNA) IgG antibody is a diagnostic criterion of systemic lupus erythematosus (SLE). The presence of the anti-dsDNA IgG antibody is identified by IFA titer (Crithidia luciliae indirect fluorescent test [SALVADOR'). SALVADOR is highly specific for SLE with a sensitivity of 50-60 percent. Some patients with early or inactive SLE may be positive for anti-dsDNA IgG by KOBY but negative by SALVADOR. If the SALVADOR result is negative but the patient has a positive KOBY and clinical suspicion remains, consider antinuclear antibody (MIRI) testing by IFA. Additional information and recommendations for testing may be found at https://[employer]/content/phztexvqso-qwmybd-uwmtjoax. Performed By: [facility] [address] [place] [address] It Audit Manager: Ruben Christianson MD, PhD CLIA Number: [id number] Blood BLOOD SPECIMEN / Unknown Lab Venipuncture / Unknown 04/07/2024 11:06 AM CDT 04/07/2024 11:28 AM CDT Brant Vargas MD LAB - SEROLOGY ORDER TAMMY [facility]) [address] [place] [address] * URINALYSIS W/MICROSCOPIC REFLEX TO CULTURE (04/07/2024 11:06 AM CDT) Color UA Yellow Straw, Yellow 04/07/2024 11:44 AM CDT [facility] Clarity UA Clear Clear 04/07/2024 11:44 AM CDT [facility] Specific [place] UA 1.019 1.005 - 1.030 04/07/2024 11:44 AM CDT [facility] pH UA 5.0 5.0 - 8.0 pH 04/07/2024 11:44 AM [facility] Protein UA Negative Negative 04/07/2024 11:44 AM [facility] Glucose UA Negative Negative 04/07/2024 11:44 AM [facility] Ketone UA Negative Negative 04/07/2024 11:44 AM [facility] Bilirubin UA Negative Negative 04/07/2024 11:44 AM [facility] Blood UA Negative Negative 04/07/2024 11:44 AM [facility] Nitrite UA Negative Negative 04/07/2024 11:44 AM [facility] Leukocyte Esterase Negative Negative 04/07/2024 11:44 AM [facility] Urobilinogen UA Negative Negative mg/dL 04/07/2024 11:44 AM [facility] RBC UA 0-2 None Seen, 0-2, 3-5 /HPF 04/07/2024 11:44 AM [facility] WBC UA 0-5 None Seen, 0-5 /HPF 04/07/2024 11:44 AM [facility] Squamous Epithelial Cells UA 0-2 None Seen, 0-2, 3-5 /HPF 04/07/2024 11:44 AM [facility] Mucus UA 1+ /LPF 04/07/2024 11:44 AM [facility] Urine URINE SPECIMEN OBTAINED BY CLEAN CATCH PROCEDURE / Unknown Collection / Unknown 04/07/2024 11:06 AM CDT 04/07/2024 11:27 AM [facility] Narrative [facility] - 04/07/2024 11:44 AM [facility] Culture Not Indicated Brant Vargas MD LAB - URINALYSIS ORD ERABLES [facility] [address] [place] [id number], [facility] [phone] * VALLE (SM) ANTIBODY BRENDEN (04/07/2024 11:06 AM CDT) Valle (BRENDEN) Antibody 3 0 - 40 AU/mL 04/10/2024 12:02 PM [facility] ([facility]) Comment: INTERPRETIVE INFORMATION: Valle (BRENDEN) Antibody, IgG 29 AU/mL or Less ............. Negative 30 - 40 AU/mL ................ Equivocal 41 AU/mL or Greater .......... Positive Valle antibody is highly specific (greater than 90 percent) for systemic lupus erythematosus (SLE) but only occurs in 30-35 percent of SLE cases. The presence of antibodies to Valle has variable associations with SLE clinical manifestations. Performed By: [facility] [address] [place] [address] It Audit Manager: Ruben Christianson MD, PhD CLIA Number: [id number] Blood BLOOD SPECIMEN / Unknown Lab Venipuncture / Unknown 04/07/2024 11:06 AM CDT 04/07/2024 11:28 AM CDT Brant Vargas MD LAB - CHEMISTRY WILL BOYCE Performing Organization Address City/[facility]/ZIP Co de Phone Number [facility] ([facility]) [address] [place] [address] * RHEUMATOID FACTOR BLOOD QUANTITATIVE (04/07/2024 11:06 AM CDT) Rheumatoid Factor <15 <30 IU/mL 04/07/2024 12:00 PM CDT [facility] Rheumatoid Factor Screen Negative Negative 04/07/2024 12:00 PM CDT [facility] Blood BLOOD SPECIMEN / Unknown Lab Venipuncture / Unknown 04/07/2024 11:06 AM CDT 04/07/2024 11:28 AM CDT Brant Vargas MD LAB - CHEMISTRY WLIL BOYCE [facility] [address] [place] [address], [facility] [phone] * C-REACTIVE PROTEIN (04/07/2024 11:06 AM CDT) C-Reactive Protein <0.5 <=0.5 mg/dL 04/07/2024 12:07 PM CDT [facility] Blood BLOOD SPECIMEN / Unknown Lab Venipuncture / Unknown 04/07/2024 11:06 AM CDT 04/07/2024 11:34 AM CDT Brant Vargas MD LAB - CHEMISTRY WILL BOYCE [facility] [address] [place] [id number], [facility] [phone] * (ABNORMAL) MIRI BLOOD SCREEN W/REFLEX TITER (04/07/2024 11:06 AM CDT) MIRI IgG Detected (A) None Detected 04/09/2024 12:27 AM CDT [facility] ([facility]) Comment: Antibodies to Anti-Nuclear Antibodies (MIRI) detected. Additional testing to follow. INTERPRETIVE INFORMATION: Anti-Nuclear Antibodies (MIRI), IgG by KOBY Antinuclear Antibodies (MIRI), IgG by KOBY: MIRI specimens are screened using enzyme-linked immunosorbent assay (KOBY) methodology. All KOBY results reported as Detected are further tested by indirect fluorescent assay (IFA) using HEp-2 substrate with an IgG-specific conjugate. The MIRI KOBY screen is designed to detect antibodies against dsDNA, histones, SS-A (Ro), SS-B (La), Valle, Valle/MARINE METEOROLOGIST, Scl-70, Natalia-1, centromeric proteins, other antigens extracted from the HEp-2 cell nucleus. MIRI KOBY assays have been reported to have lower sensitivities than MIRI IFA for systemic autoimmune rheumatic diseases (SARD). Negative results do not necessarily rule out SARD. Performed By: [facility] [address] [place] [address] It Audit Manager: Ruben Christianson MD, PhD CLIA Number: [id number] Blood BLOOD SPECIMEN / Unknown Lab Venipuncture / Unknown 04/07/2024 11:06 AM CDT 04/07/2024 11:27 AM CDT Brant Vargas MD LAB - CHEMISTRY WILL BOYCE Performing Organization Address City/[facility]/ZIP Co de Phone Number [facility]) [address] [place] [id number] * CENTROMERE ANTIBODY (04/07/2024 11:06 AM CDT) Centromere Antibody 31 0 - 40 AU/mL 04/10/2024 12:02 PM CDT [facility] ([facility]) Comment: INTERPRETIVE INFORMATION: Centromere Ab, IgG 29 AU/mL or Less ............. Negative 30 - 40 AU/mL ................ Equivocal 41 AU/mL or Greater .......... Positive When detected by this multiplex bead assay, the presence of centromere antibodies is mainly associated with CREST syndrome, a variant of systemic sclerosis (SSc). These antibodies target the centromere B, a dominant antigen of the centromeric complex associated with the centromere pattern observed in antinuclear antibody (MIRI) testing by IFA. Centromere antibodies may also be seen in a varying percentage of patients with other autoimmune diseases, including diffuse cutaneous SSc, Raynaud syndrome, interstitial pulmonary fibrosis, autoimmune liver disease, systemic lupus erythematosus (SLE) and rheumatoid arthritis (RA). A negative result indicates no detectable IgG antibodies to centromere B. If the result is negative but clinical suspicion for SSc is strong, consider testing for MIRI by IFA along with other antibodies associated with SSc, including Scl-70, U3-MARINE METEOROLOGIST, PM/Scl, or Th/To. Performed By: [facility] [address] [place] [address] It Audit Manager: Ruben Christianson MD, PhD CLIA Number: [id number] Blood BLOOD SPECIMEN / Unknown Lab Venipuncture / Unknown 04/07/2024 11:06 AM CDT 04/07/2024 11:28 AM CDT Brant Vargas MD LAB - CHEMISTRY WILL BOYCE [facility] Organization Address City/State/ZIP Co de Phone Number [facility] [facility]) [address] [place] [address] * SS-B (SJOGREN'S) ANTIBODY (04/07/2024 11:06 AM CDT) SS-B Antibody 0 0 - 40 AU/mL 04/09/2024 10:09 AM CDT [facility] ([facility]) Comment: INTERPRETIVE INFORMATION: SSB (La) (BRENDEN) Ab, IgG 29 AU/mL or Less ............. Negative 30 - 40 AU/mL ................ Equivocal 41 AU/mL or Greater .......... Positive SSB (La) antibody is seen in 50-60% of Sjogren syndrome cases and is specific if it is the only BRENDEN antibody present. 15-25% of patients with systemic lupus erythematosus (SLE) and 5-10% of patients with progressive systemic sclerosis (PSS) also have this antibody. Performed By: [facility] [address] [place] [address] It Audit Manager: Ruben Christianson MD, PhD CLIA Number: [id number] Blood BLOOD SPECIMEN / Unknown Lab Venipuncture / Unknown 04/07/2024 11:06 AM CDT 04/07/2024 11:27 AM CDT Brant Vargas MD LAB - CHEMISTRY FÉLIXE [facility] Organization Address City/State/ZIP Co de Phone Number [facility]) [address] [place] [address], [facility] * DNA ANTIBODY DOUBLE STRANDED (04/07/2024 11:06 AM CDT) dsDNA Antibody 18 0 - 24 IU 04/08/2024 9:20 PM CDT [facility] ([facility]) Comment: INTERPRETIVE INFORMATION: Double-Stranded DNA (dsDNA) Ab IgG KOBY 24 IU or less........Negative 25-30 IU.............Borderline Positive 30-60 IU.............Low Positive 60-200 IU............Positive 201 IU or greater....Strong Positive Positivity for anti-double stranded DNA (anti-dsDNA) IgG antibody is a diagnostic criterion of systemic lupus erythematosus (SLE). Specimens are initially screened by enzyme-linked immunosorbent assay (KOBY). If ordered as reflex ([id number]), positive KOBY results (>24 IU) will be reflexed to a highly specific IFA titer (Crithidia luciliae indirect fluorescent test [SALVADOR') for confirmation. Some patients with early or inactive SLE may be positive for anti-dsDNA IgG by KOBY but negative by SALVADOR. If the patient is negative by SALVADOR but positive by KOBY and clinical suspicion remains, consider antinuclear antibody (MIRI) testing by IFA. Additional information and recommendations for testing may be found at [email or web address]-[email or web address]-[email or web address]. Performed By: [place] [address] It Audit Manager: Ruben Christianson MD, PhD CLIA Number: [id number] Blood BLOOD SPECIMEN / Unknown Lab Venipuncture / Unknown 04/07/2024 11:06 AM CDT 04/07/2024 11:28 AM CDT Brant Vargas MD LAB - HEMATOLOGY ORD ERABLES Performing Organization Address City/[facility]/ZIP Co de Phone Number [facility] ([facility]) [address] [place] [address] * CYCLIC CITRULLINATED PEPTIDE(CCP) AB IGG (04/07/2024 11:06 AM CDT) CCP Antibody IgG 1.1 <5.0 U/mL 04/07/2024 12:23 PM CDT [facility] Blood BLOOD SPECIMEN / Unknown Lab Venipuncture / Unknown 04/07/2024 11:06 AM CDT 04/07/2024 11:28 AM CDT Brant Vargas MD LAB - CHEMISTRY ORDE RABGIANNI [facility] [address] [place] [address], [facility] [phone] * ERYTHROCYTE SEDIMENTATION RATE (04/07/2024 11:06 AM CDT) Erythrocyte Sedimentation Rate Westergren 16 0 - 30 MM/HR 04/07/2024 12:14 PM CDT [facility] Blood BLOOD SPECIMEN / Unknown Lab Venipuncture / Unknown 04/07/2024 11:06 AM CDT 04/07/2024 11:34 AM CDT Brant Vargas MD LAB - HEMATOLOGY ORD ERABLES [facility] [address] [place] [address], [facility] [phone] * CBC WITH DIFFERENTIAL (04/07/2024 11:06 AM CDT) WBC 6.1 4.0 - 10.7 x10E9/L 04/07/2024 11:39 AM [facility] RBC Count 4.62 3.90 - 5.20 x10E12/L 04/07/2024 11:39 AM [facility] Hemoglobin 14.2 11.9 - 15.8 g/dL 04/07/2024 11:39 AM [facility] Hematocrit 43.6 34.8 - 46.1 % 04/07/2024 11:39 AM [facility] MCV 94.4 80.0 - 98.0 fL 04/07/2024 11:39 AM [facility] MCH 30.7 26.7 - 33.6 pg 04/07/2024 11:39 AM [facility] MCHC 32.6 31.7 - 36.3 g/dL 04/07/2024 11:39 AM [facility] RDW-CV 12.4 11.3 - 14.8 % 04/07/2024 11:39 AM [facility] Platelet Count 219 150 - 420 x10E9/L 04/07/2024 11:39 AM [facility] MPV 8.9 7.8 - 11.4 fL 04/07/2024 11:39 AM [facility] Neutrophil % 67.7 41.0 - 74.0 % 04/07/2024 11:39 AM [facility] Lymphocyte % 21.0 17.0 - 47.0 % 04/07/2024 11:39 AM [facility] Monocyte % 8.2 3.0 - 11.0 % 04/07/2024 11:39 AM [facility] Eosinophil % 2.1 0.0 - 7.0 % 04/07/2024 11:39 AM [facility] Basophil % 0.8 0.0 - 1.6 % 04/07/2024 11:39 AM [facility] Immature Granulocytes % 0.2 0.0 - 1.0 % 04/07/2024 11:39 AM [facility] Neutrophil Absolute 4.15 1.60 - 7.50 x10E9/L 04/07/2024 11:39 AM [facility] Lymphocyte Absolute 1.29 1.00 - 4.40 x10E9/L 04/07/2024 11:39 AM [facility] Monocyte Absolute 0.50 0.15 - 1.00 x10E9/L 04/07/2024 11:39 AM [facility] Eosinophil Absolute 0.13 0.00 - 0.60 x10E9/L 04/07/2024 11:39 AM [facility] Basophil Absolute 0.05 0.00 - 0.13 x10E9/L 04/07/2024 11:39 AM [facility] Blood BLOOD SPECIMEN / Unknown Lab Venipuncture / Unknown 04/07/2024 11:06 AM CDT 04/07/2024 11:34 AM T Brant Vargas MD LAB - HEMATOLOGY ORD ERABLES Performing Organization Address City/State/[facility] Co de Phone Number [facility] [address] [place] [phone], [facility] [phone] * COMPREHENSIVE METABOLIC PANEL (04/07/2024 11:06 AM [facility]) BUN 18 7 - 26 mg/dL 04/07/2024 12:06 PM [facility] Creatinine 0.78 0.56 - 0.96 mg/dL 04/07/2024 12:06 PM [facility] Sodium 140 136 - 145 mmol/L 04/07/2024 12:06 PM [facility] Potassium 4.2 3.5 - 4.5 mmol/L 04/07/2024 12:06 PM [facility] Chloride 106 98 - 107 mmol/L 04/07/2024 12:06 PM [facility] CO2 27 22 - 29 mmol/L 04/07/2024 12:06 PM [facility] Glucose 71 70 - 115 mg/dL 04/07/2024 12:06 PM [facility] Calcium 9.6 8.4 - 10.2 mg/dL 04/07/2024 12:06 PM [facility] Protein Total 7.6 6.0 - 8.3 g/dL 04/07/2024 12:06 PM [facility] Albumin 4.2 3.4 - 5.0 g/dL 04/07/2024 12:06 PM [facility] Bilirubin Total 0.5 0.2 - 1.2 mg/dL 04/07/2024 12:06 PM [facility] Alkaline Phosphatase 103 40 - 150 U/L 04/07/2024 12:06 PM [facility] ALT 19 5 - 55 U/L 04/07/2024 12:06 PM [facility] AST 19 5 - 34 U/L 04/07/2024 12:06 PM [facility] Anion Gap 7 6 - 16 04/07/2024 12:06 PM [facility] BUN/Creatinine Ratio 23 7 - 23 04/07/2024 12:06 PM [facility] Osmolality Calculated 290 275 - 295 mOsm/kg 04/07/2024 12:06 PM [facility] Albumin/Globulin Ratio 1.2 1.1 - 2.3 04/07/2024 12:06 PM [facility] eGFR by CKD-EPI >90 >=90 mL/min/1.7 3 m2 04/07/2024 12:06 PM [facility] Blood BLOOD SPECIMEN / Unknown Lab Venipuncture / Unknown 04/07/2024 11:06 AM CDT 04/07/2024 11:34 AM [facility] Brant Vargas MD LAB - CHEMISTRY WILL BOYCE [facility] Organization Address City/State/ZIP Co de Phone Number [address] [address], [facility] [phone] * PROTEIN CREATININE RATIO URINE RANDOM PNL (04/07/2024 11:06 AM CDT) Protein Urine <7 Not Established mg/dL 04/07/2024 12:01 PM CDT [facility] Creatinine Urine 127.26 Not Established mg/dL 04/07/2024 12:01 PM T [facility] Protein/Creatinin e Ratio Urine 04/07/2024 12:01 PM T [facility] Comment:Unable to calculate ratio because the analyte concentration is outside the instrument measuring range. Urine URINE SPECIMEN OBTAINED BY CLEAN CATCH PROCEDURE / Unknown Collection / Unknown 04/07/2024 11:06 AM CDT 04/07/2024 11:27 AM CDT Brant Vargas MD LAB - URINE CHEMISTR Y ORDERABLES [address] [address], [facility] [phone]
[2024-10-07] MEDS: LACTATED RINGERS 1,000 ML 30 ML IV CONT ×2 (08:29→11:22)
[2024-10-07] MEDS: SCOPOLAMINE 1 MG PATCH 1 PATCH TRANSDERM (08:30)
--- NOTE | 2024-10-07 09:21 | WPDANESEPPF ---
Anes - Initial Pre Proc Eval Procedure: Operation Date: 10/07/24 09:15 Proposed Procedures p Arthrodesis First Metatarsophalangeal Joint Right Foot - Quincy Mcfarland Jr., DPM Date/Time: 10/07/24 09:21 Surgeon: Quincy Mcfarland Jr., DPM Pre Op Diagnosis: Arthritis Right First Metatarsophalangeal Joint Patient Data Age: 54 Gender: F Height: 1.73 m Weight: 69.35 kg Last Vital Signs Temp 37.2 C 10/07/24 08:10 Pulse 82 10/07/24 08:10 Resp 18 10/07/24 08:10 BP 133/92 H 10/07/24 08:10 Pulse Ox 100 10/07/24 08:10 O2 Del Method Room Air 10/07/24 08:10 Allergies Allergy/AdvReac Type Severity Reaction Status Date / Time codeine Allergy Unknown hives Verified 10/07/24 09:06 Home Medications ?Medication ?Instructions ?Recorded ?Confirmed ?Type sertraline 25 mg tablet 25 mg PO DAILY #90 tabs 01/04/24 10/07/24 Rx estradiol 1 mg tablet 1 mg PO DIRECTED 09/22/24 10/07/24 History medroxyprogesterone 2.5 mg tablet 2.5 mg PO DIRECTED 09/22/24 10/07/24 History multivitamin (Daily Multi-Vitamin 1 tablet PO DAILY 09/22/24 10/07/24 History tablet) Patient hx anesthesia problems: none Family hx anesthesia problems: none Results Review: All pre-operative results and documents have been reviewed as part of the pre-operative evaluation. 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 Positive MIRI (antinuclear antibody) Screen for colon cancer Insomnia Toe pain, bilateral Surgical History Surgical History H/O foot surgery Family History Family History Grandparent Family history of osteoporosis Mother Family history of osteoporosis Patient's mother is in good health Breast cancer Father Patient's father is in good health Pacemaker Sibling Patient's sister is in good health Other Asthma Social History Social History Social History: Caffeine-occasional soda Smoking status: Never smoker Second hand tobacco smoke exposure: Yes Alcohol intake: current Alcohol use details: 1 drink a month Substance use: never Substance use type: does not use Lack of Transportation: YES Lack of Food: Never True Current Housing: I Have Housing Concerned About Future Housing: No Difficulty Paying Gas/Electric Bills: No Difficulty Paying for Meds: No Currently Unemployed: No Education: High School Diploma/GED Difficulty w/ Childcare or Family Care: No Living arrangements: with family Occupation/Education: 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 Informed Consent: The patient's anesthetic plan and its attendant risks and benefits were discussed with the patient/family/POA. Questions were solicited and answers provided to the satisfaction of the patient/family/POA.
[2024-10-07] MEDS: ceFAZolin SODIUM 2 GM/20 ML SW SYRINGE IV PUSH (09:35)
[2024-10-07] MEDS: BUPivacaine HCL 0.5% PF 30 ML VIAL INFILTRATE (09:43)
[2024-10-07] MEDS: LIDOCAINE 2% LOCAL INJ 20 ML VIAL INFILTRATE (10:00)
--- NOTE | 2024-10-07 10:53 | W.PM.PROC2 ---
Procedure Note - Detailed Date of Procedure 10/07/24 Pre-op Diagnosis Arthritis Right First Metatarsophalangeal Joint Post-op Diagnosis Same Procedure Performed Arthrodesis of the 1st metatarsal phalangeal joint right foot Surgeon Quincy Mcfarland Jr., DP Anesthesia General and Local Indications Right big toe joint pain Findings Severe cartilage degeneration to the 1st MPJ Description of Procedure PROCEDURE IN DETAIL: Under mild sedation, the patient was brought into the operating room, placed on the operating table in supine position. A pneumatic ankle tourniquet was placed about the patient's ipsilateral ankle. Following general anesthesia and a Ceja Block with 20ccs of 2% Lidocaine plain and 0.5% Marcaine plain, the foot was then scrubbed, prepped, and draped in the usual aseptic manner. An Esmarch bandage was then used to exsanguinate the patient's foot and the pneumatic ankle tourniquet was then inflated. Surgery began in the following manner: Attention was directed to the dorsal medial aspect of the 1st metatarsophalangeal joint where there was a moderate subcutaneous prominence was noted. The incision was made starting along the central shaft of the 1st metatarsal and extending just proximal to the interphalangeal joint of the hallux. The incision was continued deep down through the subcutaneous tissues using sharp and blunt dissection. All bleeders were cauterized as necessary. At this point, the dissection was continued down to the level of the periosteum and capsular structures overlying the 1st metatarsophalangeal joint. A full length periosteum and capsular incision was made just medial to the extensor hallucis longus tendon. The periosteum and capsular structures were freed from the base of the proximal phalanx as well as the distal 1st metatarsal. At this point, the 1st metatarsophalangeal joint was identified. There was loss of articular cartilage to the head of the 1st metatarsal as well as the base of the proximal phalanx worse centrally and medially. There was significant broadening and hypertrophy of the 1st metatarsophalangeal joint. Utilizing a sagittal bone saw, the hypertrophied 1st metatarsal was resected dorsally, medially, and laterally. A power bur was used to make sure that there were no rough edges and also to further debride the hypertrophic 1st metatarsal. Next, a rongeur was used to resect the hypertrophic base of the proximal phalanx. At this point, the reamer system for the Maxforce plate system was used to denude the degenerative cartilage from the head of the 1st metatarsal as well as the base of the proximal phalanx. The cartilage and subchondral bone were fully debrided utilizing the reamer system until healthy bleeding bone was noted. Next, a 2-0 drill bit was used to further fenestrate the head of the 1st metatarsal as well as the base of the proximal phalanx in order to allow fusion across the 1st metatarsophalangeal joint. Next, a guide wire for a 3.0 headless Arthrex compression screw was driven from the medial aspect of the base of the proximal phalanx into the head of the 1st metatarsal in order to serve as temporary fixation, next the cannulated screw was driven and provided excellent compression. Next A large steel plate was used to make sure that the hallux was in a rectus position both in the sagittal plane as well as the frontal plane. Excellent position of the hallux was noted. Next, a Maxforce plate was placed atop the 1st metatarsophalangeal joint held in position with [place] wires. Utilizing standard principles and techniques, the distal drill holes were drilled and three 3.0 mm fully-threaded locking screws were driven from dorsal to plantar holding the distal aspect of the plate intact. At this point, the Maxforce compression system was utilized from dorsal distal to proximal plantar across the 1st metatarsophalangeal joint with excellent compression noted. Next, a 3.0mm locking screw was used to further compress the joint along the oblong dynamic compression screw slot. Next, the remaining 2 proximal drill holes were drilled from dorsal to plantar across and two 3.0 mm locking screws were driven from dorsal to plantar. The wound site was then flushed with copious amounts of sterile saline. Fluoroscopy was used to make sure that the plate was appropriately aligned and oriented and also to make sure that the screws were of appropriate length and orientation. Excellent position of the 1st metatarsophalangeal joint was visualized in all planes. Next, the periosteum and capsular structures were reapproximated with 3-0 Vicryl. Next, the subcutaneous structures were reapproximated with 4-0 Vicryl. Next, the skin was reapproximated and coapted utilizing 4-0 Monocryl in running subcuticular suture fashion technique. Upon completion of the procedure, the incision was dressed with Steri-Strips, Adaptic, 4x4s, Kerlix, and Coban. The pneumatic ankle tourniquet was then deflated and a prompt hyperemic response was noted to all digits of the foot. A posterior splint was then applied to the affected lower extremity. It is important to note that Dr. Mcfarland was present throughout the procedure. The patient did very well with the procedure and the anesthesia. The patient was transferred to the recovery room with vital signs stable and vascular status intact to all toes of the foot. Following a period of postoperative monitoring, the patient will be discharged home on the following written and oral postoperative instructions: 1. Keep the dressing clean, dry, and intact. 2. The patient to be strictly nonweightbearing with a knee scooter or crutches. 3. The patient should ice and elevate the foot when at rest. 4. The patient should contact Dr. Mcfarland for all postop care and if any problems should arise. 5. Prescriptions were written for Percocet 5/325, dispensed 40 to be taken 1 p.o. q.4-6 hours as needed for severe pain. Furthermore, the patient should also take Xarelto 10 mg to be taken 1 p.o. daily starting 24 hours after surgery to prevent DVT for 14 days followed by one 325 mg aspirin until walking is re-initiated. Implants Arthrex Maxforce plate with 3.0 locking and non locking screws 3.5 Arthrex Headless Cannulated screw Estimated Blood Loss 1 Drains No Packing No Pathology None sent Complications No immediate complications Condition Stable Disposition Same day
--- NOTE | 2024-10-07 11:55 | WPDANESPN ---
Anes - Prog Note Post-Op Date/Time: 10/07/24 11:55 Cardiovascular status: normal Respiratory status: normal Airway patency: baseline Mental status: baseline Post-Op hydration status: normal Vital Signs: Last Vital Signs Temp 36.1 C L 10/07/24 10:44 Pulse 72 10/07/24 11:40 Resp 16 10/07/24 11:40 BP 149/92 H 10/07/24 11:40 Pulse Ox 100 10/07/24 11:40 O2 Del Method Room Air 10/07/24 11:40 O2 Flow Rate 6 10/07/24 11:04 Pain Score (VAS): 210 I/O: Intake & Output 10/06/24 10/07/24 10/07/24 23:59 07:59 15:59 Intake Total 1000 Balance 1000 Patient Feedback: Patient satisfied with anesthetic care.
== END 2024-10-07 12:29 | disposition home or self-care (01) ==
PROVIDERS: PCP Family Medicine; Visit Provider Podiatrist Foot & Ankle Surgery
PROC: (CPT 28750; principal; 2024-10-07 09:15)
DX: M19.071 Primary osteoarthritis, right ankle and foot (principal)
CPT/HCPCS: 28750; 99199